=== PATIENT | male | born 1950 | race Caucasian/White ===

== ENCOUNTER → 2019-08-20 | Outpatient (CLI) | payer OTHER ==
[~2019-08-20] MED LIST: BUPR-365 PO; CETI10CA2 PO; FLUT15.820; HYDR-4517 PO; LEFL1TAB4 PO; LISI-542 PO; PANT40TA29 PO; PRED5PAK2 PO; PREG100CA PO; PROAAER10 INH; ROSU40TA4 PO; THEO400T4 PO; TIOT18INH INH; TOPR50TA PO
== END ==
LOC: M LABSMTC 08:03
PROVIDERS: ATTEND Anesthesiology
DX: Z03.818 Encounter for observation for suspected exposure to other biological agents ruled out (principal); Z11.59 Encounter for screening for other viral diseases
CPT/HCPCS: C9803; U0003

== ENCOUNTER 2019-08-24 06:52 | Day surgery (SDC) | payer OTHER ==
[~2019-08-24] VITALS: Ht 180.3 cm; Wt 86.5 kg
[2019-08-24] MEDS ORDERED: SIMETHICONE 40MG/0.6ML DROPS 30ML As Ordered ONE (06:58)
[2019-08-24] MEDS ORDERED: LIDOCAINE 2% 100MG/5ML SDV (FOR ANES.) As Ordered ONE (07:13)
[2019-08-24] MEDS ORDERED: propofoL 200 MG/20 ML VIAL As Ordered ONE (07:13)
[2019-08-24] MEDS ORDERED: NS 1,000 ML IV ONE (07:15)
--- NOTE | 2019-08-24 08:13 | ROOR ---
Patient Name: Adam Sanchez Procedure Date: 08/24/2019 7:36 AM Date of : 1950 Age: 69 Room: [facility] Gender: Male Note Status: Finalized Procedure: Colonoscopy Indications: High risk colon cancer surveillance: Personal history of colonic polyps Providers: Jovany Fine MD Referring MD: Sandro Smith Md Requesting Provider: Medicines: Monitored Anesthesia Care Complications: No immediate complications. Procedure: Pre-Anesthesia Assessment: - Prior to the procedure, a History and Physical was performed, and patient medications and allergies were reviewed. The patient is competent. The risks and benefits of the procedure and the sedation options and risks were discussed with the patient. All questions were answered and informed consent was obtained. Patient identification and proposed procedure were verified by the physician, the nurse and the anesthesiologist in the endoscopy suite. Mental Status Examination: alert and oriented. Airway Examination: normal oropharyngeal airway and neck mobility. Respiratory Examination: clear to auscultation. CV Examination: normal. Prophylactic Antibiotics: The patient does not require prophylactic antibiotics. Prior Anticoagulants: The patient has taken no previous anticoagulant or antiplatelet agents. ASA Grade Assessment: III - A patient with severe systemic disease. After reviewing the risks and benefits, the patient was deemed in satisfactory condition to undergo the procedure. The anesthesia plan was to use monitored anesthesia care (MAC). Immediately prior to administration of medications, the patient was re-assessed for adequacy to receive sedatives. The heart rate, respiratory rate, oxygen saturations, blood pressure, adequacy of pulmonary ventilation, and response to care were monitored throughout the procedure. The physical status of the patient was re-assessed after the procedure. The Colonoscope was introduced through the anus and advanced to the cecum, identified by appendiceal orifice and ileocecal valve. The colonoscopy was performed without difficulty. The patient tolerated the procedure well. The quality of the bowel preparation was excellent. Findings: Hemorrhoids were found on perianal exam. A localized area of mildly thickened folds, prob scarring of the mucosa was found in the distal transverse colon. Biopsies were taken with a cold forceps for histology. Estimated blood loss was minimal. Non-bleeding internal hemorrhoids were found during retroflexion. The hemorrhoids were medium-sized. Impression: - Hemorrhoids found on perianal exam. - No specimens collected. Recommendation: - Repeat colonoscopy in 5 years for surveillance. - Await pathology results. - Telephone my office for pathology results in 1 week. Jovany Fine MD Jovany Fine MD 08/24/2019 8:13:55 AM Electronically signed by Jovany Fine MD Number of Addenda: 0 Note Initiated On: 08/24/2019 7:36 AM Estimated Blood Loss: Estimated blood loss: none. Estimated blood loss was minimal.
[2019-08-24 08:21] VITALS: BP 105/60
== END 2019-08-24 08:21 | disposition home or self-care (01) ==
LOC: M OPP 06:52
PROVIDERS: ATTEND Surgery
DX: K64.8 Other hemorrhoids (principal); Z86.010 Personal history of colon polyps; K59.00 Constipation, unspecified; K62.5 Hemorrhage of anus and rectum; K63.5 Polyp of colon; I10 Essential (primary) hypertension; J44.9 Chronic obstructive pulmonary disease, unspecified; F17.210 Nicotine dependence, cigarettes, uncomplicated; Z79.891 Long term (current) use of opiate analgesic; Z79.899 Other long term (current) drug therapy; Z85.71 Personal history of Hodgkin lymphoma; Z92.3 Personal history of irradiation; Z92.21 Personal history of antineoplastic chemotherapy

== ENCOUNTER → 2019-10-25 | Outpatient (CLI) | payer OTHER ==
--- NOTE | 2019-11-10 11:28 | REP ---
PET CT STUDY HISTORY: Monitoring lymphoma. COMPARISON: No comparison PET CT study. Comparison CT chest 09/21/2019 and abdomen and pelvis 10/12/2019. TECHNIQUE: 50 minutes following the intravenous injection of an 8.05 mCi dose of F18 fluorodeoxyglucose (FDG), three-dimensional PET CT imaging is acquired from the skull base to the proximal thighs. PET CT FINDINGS: One of the pulmonary nodules noted on recent chest CT study, this being in the right lower lobe, is mildly hypermetabolic, standard uptake value (SUV) 4.69. The other pulmonary nodules do not show hypermetabolic uptake. There is no evidence of hilar or mediastinal adenopathy or hypermetabolic uptake elsewhere in the chest. Head and neck soft tissue show skeletal muscle normal variant uptake, but no evidence of mass or adenopathy. No axillary adenopathy is seen. There is hypermetabolic adenopathy in the abdomen with periaortic retroperitoneal lymph nodes where maximum SUV is approximately 7.0 to 7.7. Below the level of the aortic bifurcation, there is bilateral common iliac hypermetabolic adenopathy. Maximum SUV here is 9.66. There is right pelvic side wall iliopsoas deposit with maximum SUV 8.97. There is ari hypermetabolic uptake in the right inguinal soft tissues of maximum SUV 5.38. There is left pelvic side wall soft tissue deposit, which is hypermetabolic 10.68. There are two areas of bony involvement in the right hemipelvis, one along the anterior iliac crest with a maximum SUV value in the interosseous disease is 10.82. A large lesion surrounds the right acetabulum with maximum standard uptake value 11.73. No other bony involvement is seen. There is no abnormal hepatic hypermetabolic uptake. Exam is otherwise unremarkable. IMPRESSION: Hypermetabolic uptake is noted in the one of the pulmonary nodules, right lower lobe. Hypermetabolic ari disease is seen in the periaortic, pelvic, and right inguinal nodes as above. There is evidence of skeletal involvement in the right pelvis in the anterior iliac crest and in a large lesion surrounding the right acetabulum. MTDD
== END ==
LOC: M PLARAD 07:31
PROVIDERS: ATTEND Nurse Practitioner Acute Care
DX: C78.01 Secondary malignant neoplasm of right lung (principal); C81.78 Other Hodgkin lymphoma, lymph nodes of multiple sites
CPT/HCPCS: 78815; A9552

== ENCOUNTER → 2019-12-20 | Outpatient (REF) | payer OTHER ==
[~2019-12-20] MED LIST changes: +SILD100T PO; +SULF1TAB23 PO; +SYMB16INH INH; +[UNRECOGNIZED DRUG - OTHER] IV
== END ==
LOC: M SMT 13:02
PROVIDERS: ATTEND Urology
DX: N32.89 Other specified disorders of bladder (principal); Z79.899 Other long term (current) drug therapy
CPT/HCPCS: 81002; 87088; 87186; G0463

== ENCOUNTER → 2020-01-09 | Outpatient (CLI) | payer OTHER ==
[~2020-01-09] MED LIST changes: +LIDOCAINE 1% MDV 20ML VIAL As Ordered ONE; +MIDAZOLAM INJ 2MG/2ML VIAL (J2250 PER 1MG) As Ordered ONE; -[UNRECOGNIZED DRUG - OTHER] IV; +ceFAZolin 1GM VIAL (J0690 PER 500MG) As Ordered ONE; +diphenhydrAMINE 50MG/ML VIAL (J1200) As Ordered ONE; +fentaNYL 100 MCG/2 ML INJECTION (J3010) As Ordered ONE
--- NOTE | 2020-01-09 12:17 | IRHP ---
[facility] IR Pre-Procedure H & P General Date of Service: Jan 09, 2020 Procedure: Same Day Surgery Interval History and Physical I have seen the patient and reviewed last H & P performed within 30 days. There is no significant interval change. History of Present Illness Chief Complaint The patient is a 69-year-old male admitted with a reason for visit of Follicular Lymphoma. PRE-PROCEDURE DIAGNOSIS: lymphoma HEART: normal rate. LUNGS: normal breathing at rest. ASA Classification ASA Classification: III-Severe systemic dis. Mallampati Score: II NPO: Yes Problems with prior sedation: No Obstructive Sleep Apnea: No Plan moderate sedation Allergies Coded Allergies: No Known Allergies (Unverified , 01/02/20) Home Medications Scheduled Budesonide/Formoterol (Symbicort 160-4.5 Mcg Inhaler), 2 PUFF INH BID, (Reported) Bupropion HCl (Bupropion Xl), 150 MG PO BID, (Reported) Fluticasone Propionate (Fluticasone Propionate), 50 MCG NA DAILY, (Reported) Hydrocodone/Acetaminophen (Hydrocodone-Acetamin 10-325 mg), 1 TAB PO QID, (Reported) Leflunomide (Leflunomide), 20 MG PO DAILY, (Reported) Lisinopril (Lisinopril), 5 MG PO DAILY, (Reported) Metoprolol Succinate (Toprol Xl), 50 MG PO DAILY, (Reported) Pantoprazole Sodium (Pantoprazole Sodium), 40 MG PO BID, (Reported) Prednisone (Prednisone), 5 MG PO DAILY, (Reported) Pregabalin (Lyrica), 100 MG PO TID, (Reported) Rosuvastatin Calcium (Rosuvastatin Calcium), 40 MG PO DAILY, (Reported) Theophylline Anhydrous (Theophylline), 300 MG PO BID, (Reported) Tiotropium [place] Monohydrate (Spiriva), 1 INHALATION INH DAILY, (Reported) Scheduled PRN Albuterol Sulfate (Proair Hfa), 2 PUFF INH Q4-6HP PRN for SHORTNESS OF BREATH, (Reported) Discontinued Medications Sildenafil Citrate (Sildenafil Citrate), 1 TAB PO ASDIRECTED, (Reported) Discontinued Reason: Pt states not taking Sulfamethoxazole/Trimethoprim (Sulfamethoxazole-Tmp Ds Tablet), 1 TAB PO BID, (Reported) Discontinued Reason: Pt states not taking VS, I&O, 24H, Fishbone Vital Signs/I&O Vital Signs Date Time Temp Pulse Resp B/P (MAP) Pulse Ox O2 Delivery O2 Flow Rate FiO2 01/09/20 11:45 97.2 73 18 93 Room Air JAMEL JHAVERI MD Jan 09, 2020 12:17
--- NOTE | 2020-01-09 13:43 | POST-OPPD ---
Postoperative Procedure Note Date Of Procedure: Jan 09, 2020 Time Of Procedure: 13:42 IR ultrasound and fluoroscopy guided port placement IR Ultrasound of the neck. IR Moderate sedation. Clinical indication: Lymphoma. Physician: Dr. Knight. Procedure: The patient was advised of the benefits, risks, and alternatives of the procedure and informed consent was obtained. A time-out was performed with verification of the patient's name, MRN, site of procedure and type of procedure to be performed. The patient was positioned in the supine position on the angiographic table. The site was prepped and draped in the usual sterile fashion. Moderate sedation was performed by the physician including the presence of an independent trained RN who assisted and monitored the patient's level of consciousness and physiologic status. Following the administration of fentanyl and Versed , the physician spent 45 minutes of continuous face to face time with the patient. Ultrasound of the neck reveals a patent and compressible right internal jugular vein. A bean dumper radiograph reveals no gross abnormality. The neck and anterior chest wall were anesthetized with lidocaine. The right internal jugular vein was accessed using a microintroducer needle under ultrasound guidance, via a lateral approach. An 018 wire was advanced into the superior vena cava, the needle was removed and a microsheath was placed. An Amplatz wire was then passed into the inferior vena cava. An incision at the internal jugular vein access site and anterior chest wall were made using a scalpel. An incision was made at the anterior chest wall. A small pocket was created using a combination of blunt and sharp dissection. A tunneling device was then used to pass the catheter from the pocket to the neck puncture site. An 8- Welsh Angio Tweet Category Smart power port was then positioned in the pocket. The catheter was then measured and cut. The introducer sheath was exchanged for a peel-away sheath. The catheter was passed through the peel-away sheath into the internal jugular vein and the peel- away sheath was removed. The port tip was positioned at the cavoatrial junction. The port was then accessed with a Craig needle. The port flushes and aspirates well. The puncture site in the neck was closed. The chest wall incision was then closed with 2-0 Vicryl and 4-0 Monocryl. Glue and Steri- Strips were applied. A sterile dressing was then applied. The patient tolerated the procedure well and was returned to the PRU in stable condition. Estimated blood loss: <5 ml. Complications: None. Conclusion: 1. Successful placement of an 8-Welsh Angio dynamics Smart power port via the right internal jugular vein. The port is ready for immediate use. 2. Patient to follow up in IR clinic in 2 weeks. JAMEL KNIGHT MD Jan 09, 2020 13:43
[2020-01-09 15:31] VITALS: BP 110/65
== END ==
LOC: M IRPRO 11:33
PROVIDERS: ATTEND Radiology Diagnostic Radiology
DX: C82.90 Follicular lymphoma, unspecified, unspecified site (principal); Z79.899 Other long term (current) drug therapy
CPT/HCPCS: 36561; 99152; 99153; C1769; C1788; C1894; J0690; J1200; J1642; J1644; J2250; J3010

== ENCOUNTER → 2020-01-11 | Outpatient (CLI) | payer OTHER ==
[~2020-01-11] MED LIST changes: -LIDOCAINE 1% MDV 20ML VIAL As Ordered ONE; -MIDAZOLAM INJ 2MG/2ML VIAL (J2250 PER 1MG) As Ordered ONE; -ceFAZolin 1GM VIAL (J0690 PER 500MG) As Ordered ONE; -diphenhydrAMINE 50MG/ML VIAL (J1200) As Ordered ONE; -fentaNYL 100 MCG/2 ML INJECTION (J3010) As Ordered ONE
== END ==
LOC: M LABSMTC 12:56
PROVIDERS: ATTEND Anesthesiology
DX: Z01.812 Encounter for preprocedural laboratory examination (principal); Z20.828 Contact with and (suspected) exposure to other viral communicable diseases

== ENCOUNTER → 2020-02-11 | Outpatient (CLI) | payer OTHER ==
[~2020-02-11] MED LIST changes: +[UNRECOGNIZED DRUG - OTHER] IV
== END ==
LOC: M LABSMTC 11:34
PROVIDERS: ATTEND Anesthesiology
DX: Z01.812 Encounter for preprocedural laboratory examination (principal); Z20.828 Contact with and (suspected) exposure to other viral communicable diseases

== ENCOUNTER 2020-02-15 09:20 | Day surgery (SDC) | payer OTHER ==
[~2020-02-15] VITALS: Ht 180.3 cm; Wt 101.2 kg
[~2020-02-15 09:20] MED LIST changes: +LR 1,000 ML IV ONE
[2020-02-15] MEDS ORDERED: fentaNYL 100 MCG/2 ML INJECTION (J3010) As Ordered ONE (09:33)
[2020-02-15] MEDS ORDERED: ROCURONIUM BROMIDE 50 MG/5 ML VIAL As Ordered ONE (09:33)
[2020-02-15] MEDS ORDERED: ONDANSETRON 4MG/2ML VIAL As Ordered ONE (09:33)
[2020-02-15] MEDS ORDERED: MIDAZOLAM INJ 2MG/2ML VIAL (J2250 PER 1MG) As Ordered ONE (09:33)
[2020-02-15] MEDS ORDERED: propofoL 200 MG/20 ML VIAL As Ordered ONE (09:33)
[2020-02-15] MEDS ORDERED: LIDOCAINE 2% 100MG/5ML SDV (FOR ANES.) As Ordered ONE (09:33)
[2020-02-15] MEDS ORDERED: dexameTHASONE 4 MG/ML 1ML VIAL (J1100 PER 1MG) As Ordered ONE (09:33)
[2020-02-15] MEDS ORDERED: SUCCINYLCHOLINE 100 MG/5 ML SYRINGE (J0330) As Ordered ONE (09:33)
[2020-02-15 09:58] LABS: INR 0.98; PROTHROMBIN TIME 13.2 SECONDS (12.5-14.3)
[2020-02-15] MEDS ORDERED: VANCOMYCIN 1000MG/20ML VIAL As Ordered ONE (10:07)
[2020-02-15] MEDS ORDERED: GENTAMICIN/SOD CHL 80 MG/100 ML BAG (J1580) As Ordered ONE (10:07)
[2020-02-15] MEDS ORDERED: BACT400T PO (10:18)
[2020-02-15] MEDS ORDERED: GENTAMICIN 80 MG in IV 1 EA IV ONE (10:30)
[2020-02-15] MEDS ORDERED: VANCOMYCIN HCL 1,000 MG, VIAL MATE ADAPTER 1 EACH in D5W 250 ML IV ONE (10:30)
[2020-02-15] MEDS ORDERED: LACRILUBE (AKWA TEARS) OPHTH OINT 3.5 GM As Ordered ONE (11:35)
[2020-02-15] MEDS ORDERED: oxyCODONE 5MG TAB PO PRN (12:15)
[2020-02-15] MEDS ORDERED: LR 1,000 ML IV SCH (12:15)
[2020-02-15] MEDS ORDERED: ACETAMINOPHEN TAB 650MG DOSE (2X325MG) PO PRN (12:15)
[2020-02-15] MEDS ORDERED: fentaNYL 100 MCG/2 ML INJECTION (J3010) IV PRN (12:15)
[2020-02-15] MEDS ORDERED: ONDANSETRON 4MG/2ML VIAL IV PRN (12:15)
--- NOTE | 2020-02-15 13:53 | RO ---
OPERATIVE NOTE DATE OF OPERATION: 02/15/2020 PREOPERATIVE DIAGNOSIS: Bladder lesions. POSTOPERATIVE DIAGNOSIS: Bladder lesions. PROCEDURE: Cystoscopy. SURGEON: Jaylon Burr MD POOL TABLE OPERATOR: None. ANESTHESIA: General. OPERATIVE INDICATIONS: This is a 69-year-old male who underwent cystoscopy at the [facility] about a month or two ago. By report, he was found to have lesions on the anterior wall of his bladder. It was recommended that he be taken to the operating room for resection of these lesions. As he lives closer to [place], he wanted to have it done here. He was brought to the operating room today for treatment. DESCRIPTION OF PROCEDURE: The patient was brought to the operating room and general anesthesia was induced. Prophylactic antibiotics were infused. He was placed in the dorsolithotomy position and prepped and draped in the usual sterile fashion. A cystoscope was inserted into the urethral meatus and advanced to the bladder. The bladder was then thoroughly examined with both the 30 and the 70 degrees lenses. No tumors were seen. No bladder lesions were seen. There were no bladder stones. The urothelium of the bladder looked completely normal. There were no trabeculations. Both ureteral orifices were orthotopic and effluxed clear urine. Since no lesions were seen, no biopsies or resections were done. The patient's prostatic urethra was notable for bilobar prostatic hyperplasia with [id number] outlet obstruction. Of note, the patient did have some bleeding from his prostate from the procedure. The remainder of the urethra was unremarkable. The cystoscope was then completely removed. An 18-Polish Barbosa catheter was inserted into the bladder given the hematuria from the prostate. The catheter balloon was filled with 10 mL of sterile water and then the catheter was connected to gravity drainage. This marked conclusion of the procedure. The patient was taken out of the dorsolithotomy position, awakened from anesthesia, and transported to the recovery room in stable condition. ESTIMATED BLOOD LOSS: 5 mL. COMPLICATIONS: None. SPECIMENS: None. PLAN: The patient's catheter will be removed in the recovery room. Since no abnormalities were found, the patient will resume follow up with his urologist in [place]. PEPITO
[2020-02-15 14:15] VITALS: BP 132/78
== END 2020-02-15 14:40 | disposition home or self-care (01) ==
LOC: M SDC 09:20
PROVIDERS: ATTEND Urology
DX: N32.9 Bladder disorder, unspecified (principal); I10 Essential (primary) hypertension; J44.9 Chronic obstructive pulmonary disease, unspecified; K44.9 Diaphragmatic hernia without obstruction or gangrene; F41.9 Anxiety disorder, unspecified; F32.9 Major depressive disorder, single episode, unspecified; Z79.899 Other long term (current) drug therapy
CPT/HCPCS: 36415; 52000; 85610; J1580; J2405; J3370

== ENCOUNTER → 2020-03-09 | Outpatient (CLI) | payer OTHER ==
[~2020-03-09] MED LIST changes: +BACT400T PO; -LR 1,000 ML IV ONE
--- NOTE | 2020-03-09 12:29 | RADONC.CN ---
Radiation Oncology Hx/Consult Radiation Oncology Consult Date of Service: Mar 09, 2020 Pt Identifier Adam Sanchez is a 69 year old male with smoker with stage IV follicular lymphoma, grade I, currently on single agent rituximab with right pelvic pain from PET-CT avid bone involvement. He is seen for consideration of palliative RT. Diagnosis/Treatment History Oncologic History 2013 presented with pelvic mass, biopsy showed grade I FL. Started on BR which induced CR. Had restaging PET-CT on 10/25/19 which showed stage IV disease. He has notable right pelvic bone and soft tissue involvement on this study remainder of disease is ari in distribution. 11/29/19 right iliac was biopsied which showed recurrent FL grade 1. BM biopsy on 01/10/20 was negative. He has concomitant spinal arthritis, currently in workup for lumbar disc disease and cervical stenosis. Possible plan for cervical spine surgery at [facility] upcoming. Interval History Notes pain in the neck and low back, radiating in quality. Low back pain radiat es down the left leg to the ankle. No weakness in the arms or legs. He also has localized right hip/pelvic pain, hurts worst when he sits on hard surfaces, or with extensive use. Does not radiate, improves with rest and narcotic. He is also on lyrica which is helpful but sedating. He has no saddle anesthesia, or bowel and bladder difficulties. Past Medical History: Arthristis Spinal stenosis Lumbar disc disease HTN COPD Past Surgical History: None Family History: No family cancer history Social History: Current smoker 1/2 ppd, 50 pack years Used to drink alcohol does not any longer [employer] [place] [place] in [place] [employer] denies agent orage Allergies / Meds Allergies: Coded Allergies: No Known Allergies (Unverified , 02/01/20) Home Meds Reported Medications Sulfamethoxazole/Trimethoprim (Bactrim 400-80 mg Tablet) 1 Each Tablet, 1 TAB PO BID for 7 Days, #14 TAB 02/15/20 [Ripuximab] No Conflict Check, IV QWEEK 02/01/20 Budesonide/Formoterol (Symbicort 160-4.5 Mcg Inhaler) 6 Gm Hfa.aer.ad, 2 PUFF INH BID for 30 Days, #1 INHALER 12/26/19 Rosuvastatin Calcium (Rosuvastatin Calcium) 40 Mg Tablet, 40 MG PO DAILY, TAB 08/15/19 Metoprolol Succinate (Toprol Xl) 50 Mg Tab.er.24h, 25 MG PO DAILY, TAB 08/15/19 Hydrocodone/Acetaminophen (Hydrocodone-Acetamin 10-325 mg) 1 Each Tablet, 1 TAB PO QID, TAB 08/15/19 Pregabalin (Lyrica) 100 Mg Capsule, 100 MG PO TID, CAP 08/15/19 Albuterol Sulfate (Proair Hfa) 8.5 Gm Hfa.aer.ad, 2 PUFF INH Q4-6HP PRN for SHORTNESS OF BREATH, INHALER 08/15/19 Tiotropium [place] Monohydrate (Spiriva) 18 Mcg Cap.w.dev, 1 INHALATION INH DAILY, INHALER 08/15/19 Fluticasone Propionate (Fluticasone Propionate) 15.8 Ml [place].susp, 50 MCG NA DAILY, CONTAINER 08/15/19 Bupropion HCl (Bupropion Xl) 150 Mg Tab.er.24h, 150 MG PO BID, TAB 08/15/19 Lisinopril (Lisinopril) 5 Mg Tablet, 2.5 MG PO DAILY, TAB 08/15/19 Leflunomide (Leflunomide) 20 Mg Tablet, 20 MG PO DAILY, TAB 08/15/19 Prednisone (Prednisone) 5 Mg Tab.ds.pk, 5 MG PO DAILY 08/15/19 Pantoprazole Sodium (Pantoprazole Sodium) 40 Mg Tablet.dr, 40 MG PO BID, TAB 08/15/19 Theophylline Anhydrous (Theophylline) 400 Mg Tab.er.24h, 300 MG PO BID, TABCR 08/15/19 Review of Systems Constitutional: Reports: Fatigue; Denies: Chills, Fever, Night Sweats Eyes: Denies: Pain, Vision change HEENT: Denies: Head Aches, Dysphagia, Sore Throat Pulmonary: Reports: Dyspnea; Denies: Cough Cardiovascular: Denies: Chest Pain, Palpitations, Edema Gastrointestinal: Denies: Nausea, Vomiting, Abdominal Pain, Diarrhea, Constipation Genitourinary: Denies: Dysuria, Frequency, Incontinence Hematologic: Reports: Bruising; Denies: Petecchia, Enlarged Lymph Nodes Musculoskeletal: Reports: Neck pain, Back pain, Leg pain; Denies: Hand pain Neurological: Denies: Weakness, Numbness, Incoordination Psych: Reports: Mood Normal; Denies: Memory Issues, Thoughts of Self Harm Vital Signs Ht 71" Wt 200 lb BMI 28 T 98 P 96 RR 22 BP 155/96 O2 91% Pain 6 Fatigue 1 General Exam: Positive: Alert, Cooperative, No Acute Distress Eye Exam: Positive: PERRLA, EOMI ENT EXAM: Positive: Mucous membr. moist/pink, Pharynx Normal Neck Exam: Negative: Thyromegaly, Lymphadenopathy Chest Exam: Positive: Normal air movement; Negative: Rales, Rhonchi, Wheezing Heart Exam: Positive: Rate Normal, Regular Rhythm Abdomen Exam: Positive: Soft; Negative: Tenderness, Hepatospenomegaly, Mass Extremity Exam: Positive: Edema; Negative: Tenderness Skin Exam: Positive: Nl turgor and temperature; Negative: Rash Neuro Exam: Positive: Normal Gait, Normal Speech, Cranial Nerves 3-12 NL Psych Exam: Positive: Mental status NL, Mood NL, Memory Intact Other Physical Findings MSK: Right hip with minimal tenderness to palpation over the anterior pelvic girdle, no TTP over iliacs, ischia, and lumbosacral spinal levels. Diagnostic and Laboratory Diagnostic Review Radiologic images, relevant labs and pathology reports were personally reviewed and discussed with Mr. Sanchez. Assessment and Plan Impression Mr. Sanchez is a 69 year old male with a history of smoker with stage IV follicular lymphoma, grade I, currently on single agent rituximab with right pelvic pain from PET-CT avid bone involvement. He is seen for consideration of p alliative RT. Stage Follicular lymphoma stage IV grade 1 Performance Status ECOG 2 Plan We had an extensive discussion with Mr. Sanchez regarding the diagnosis at hand and available therapeutic options. He has bone and soft tissue disease in the right iliac and acetabulum as well as abdomino-pelvic adenopathy at these levels. I favor treating the right hemipelvis with 20 Gy in 5 fractions AP/PA with MV localization in the interest of pain control. He certainly has pain that is arthritic in nature as well that would be best addressed surgically or with non-operative pain management measures and he has appropriate follow up in the pain clinic here and with a spine surgeon at [facility]. The latter may be planning on operating so prompt delivery of palliative RT is warranted and I discussed that we could move ahead and get him under treatment next week. We discussed the logistics of receiving radiation therapy in detail including the need for a 1-time planning session. We reviewed anticipated side effects of fatigue and mild self-limited diarrhea. After discussing the risks, benefits and alternatives to radiation therapy, Mr. Sanchez was amenable to pursuing radiotherapy. All questions were answered to the patient's satisfaction. We instructed the patient that if there were any questions,concerns or changes in clinical status in the interim to contact us. Recommendations Palliative RT to the right hemipelvis 20 Gy in 5 fractions Simulation early next week 03/12/20 or 03/13/20 Total time of 40 minutes was spent preparing for the visit (5), obtaining HPI (13), examining the patient (4), reviewing diagnostic tests (5), discussing management options (3), coordinating care (3), and writing this note (7). ROX GENTILE MD Mar 09, 2020 12:29
== END ==
LOC: M ONCR 10:53
PROVIDERS: ATTEND General Practice
DX: C82 Follicular lymphoma (principal)

== ENCOUNTER 2020-03-20 11:45 | Outpatient (RCR) | payer OTHER ==
[~2020-03-20 11:45] MED LIST changes: -LISI-542 PO; +LISI-898 PO
[2020-04-02] MEDS ORDERED: PRED10TA2 (13:10)
== END 2020-04-08 ==
LOC: M ONCR 11:45
PROVIDERS: ATTEND General Practice
DX: C82.09 Follicular lymphoma grade I, extranodal and solid organ sites (principal)

== ENCOUNTER → 2020-03-21 | Outpatient (CLI) | payer OTHER, MEDICARE ==
--- NOTE | 2020-03-21 18:50 | REP ---
INDICATION: SOLITARY PULMONARY NODULE COMPARISON: 09/21/2019 TECHNIQUE: Axial noncontrast images from the thoracic inlet to the upper abdomen with coronal and sagittal reformations. This CT examination was performed using the following dose reduction techniques: Automated exposure control, adjustment of mA and/or kv according to the patient's size, and use of iterative reconstruction technique. FINDINGS: Lung vazquez demonstrate mild chronic emphysematous changes and scattered age-related interstitial changes. Lobulated right lower lobe nodule measures 16 mm and increased from prior examination (previously measuring 11 mm). Left upper lobe and left lower lobe nodules now demonstrates small amounts of central calcification suggesting chronic granulomatous change. Subtle reticulonodular changes are appreciated in the right lung along with tree in bud type infiltrates in the right lower lobe suggesting an acute infectious/inflammatory process. No effusion. No pneumothorax. Tracheobronchial tree is patent. No significant axillary, hilar, or mediastinal adenopathy. Atherosclerotic changes to the thoracic aorta and coronary arteries noted. [id number] identified with tip in the SVC. Skeletal structures demonstrate degenerative changes without focal osseous abnormality. IMPRESSION: 1. Slightly lobulated right lower lobe nodule increased in size to 16 mm on current examination. Nodule exhibited hypermetabolic activity on prior PET-CT and is concerning for malignancy. 2. Subtle superimposed nodular pattern and right lower lobe tree in bud pattern suggest a superimposed acute infiltrate. 3. No significant adenopathy. No effusion. <Electronically signed by Vinnie Cabrera > 03/21/20 [id number]
== END ==
LOC: M RAD 12:45
PROVIDERS: ATTEND Internal Medicine Pulmonary Disease
DX: R91.1 Solitary pulmonary nodule (principal)

== ENCOUNTER → 2020-03-31 | Outpatient (CLI) | payer OTHER ==
[~2020-03-31] MED LIST changes: +PRED10TA2
== END | disposition home or self-care (01) ==
LOC: M LABSMTC 11:33
PROVIDERS: ATTEND Anesthesiology
DX: Z01.812 Encounter for preprocedural laboratory examination (principal); Z11.52 Encounter for screening for COVID-19

== ENCOUNTER → 2020-04-03 | Outpatient (CLI) | payer OTHER ==
[~2020-04-03] MED LIST changes: +GASTROGRAFIN SOLUTION 30ML (Q9963) As Ordered ONE; +ISOVUE-370 76% 100ML VIAL As Ordered ONE
--- NOTE | 2020-04-03 17:10 | REP ---
INDICATION: LYMPHOMA RESTAGING. COMPARISON: Contrast CT 10/12/2019 at [facility], noncontrast CT 10/26/2014 TECHNIQUE: Oral Gastrografin mixture per our bowel contrast protocol followed by bolus of 100 mL Isovue 370 scanning through the abdomen and pelvis. Coronal and sagittal reconstructions provided. Delayed images also obtained. FINDINGS: CT abdomen: Lung bases show some dependent atelectatic changes deep sulcus right lower lobe without effusion or acute infiltrate no parenchymal mass. Irregular nodule 9 mm size anteriorly in the lateral basal segment of the left lower lobe on image 15 of series 204. There is a similar finding on the image 4 of series [address] in October 2019. Heart is not enlarged no pericardial thickening or effusion. The liver shows multiple scattered hypodensities in right and left lobes which are unchanged in number and size from the previous studies mild prominence of the intrahepatic ducts centrally noted. All this is unchanged. There is no gross hepatomegaly or solid mass nor adjacent ascites. See no calcifications along the course of the common duct in chrystal hepatis to the pancreatic head. The gallbladder shows no calcified stone. Adrenal glands grossly intact. Exophytic cyst posteriorly in the interpolar region the left kidney is unchanged, about 12 mm. Subcentimeter parenchymal cyst anteriorly upper pole the left kidney unchanged. Lower pole cyst medially in the left kidney. The right kidney also stable. No hydronephrosis, hydroureter, renal or ureteral stone identified. Small bowel loops contrast filled and grossly unremarkable. There is stool and gas scattered throughout the colon without signs of colitis, diverticulitis, stricture or mass. Abdominal aorta shows atherosclerotic calcifications but no aneurysm or dissection. Very heavy calcification in the proximal left renal artery but no atrophy of that kidney or evidence for infarct. Also calcification origin of the left main renal artery, celiac axis and SMA. The lung window review of all CT slices shows no free air or perforation in the abdomen and pelvis. No ascites in the peritoneal gutters. Bones show extensive mid lumbar discogenic sclerosis and vacuum phenomenon L2-3 through L4-5. Posterior osteophytes and a calcified extruded disc centrally and towards the right at the L3-4 level. All this unchanged. There is foraminal encroachment at multiple lumbar levels. I do not see periaortic, other retroperitoneal or mesenteric pathologic sized lymphadenopathy. CT pelvis: Sacrum, SI joints, pelvis and hips show some mild degenerative changes without destructive lesion or fractures. Distal left colon, sigmoid and rectum grossly unremarkable. No pelvic or inguinal pathologic sized lymphadenopathy. No ventral or inguinal hernia. Bladder without abnormal wall thickening, stone or mass. Prostate with calcifications from prior inflammatory process. Small bowel loops in the pelvis unremarkable. IMPRESSION: 1. Multiple hepatic and CIS and low-density lesions unchanged from previous study without solid mass or hepatomegaly. Some mild intrahepatic central biliary dilatation as on the previous study but no visible calcified stone within the common duct. 2. Pancreas, adrenal glands and spleen were unremarkable stomach shows no hiatal hernia. 3. Some small cysts in the kidneys as described. No abdominal or pelvic lymphadenopathy. No renal, ureteral or bladder stone. 4. Colon and small bowel loops grossly intact. Some degenerative changes in the spine pelvis and hips as described. <Electronically signed by Harsha Millan > 04/03/20 4545
== END ==
LOC: M RAD 13:47
PROVIDERS: ATTEND Internal Medicine Hematology & Oncology
DX: C82.90 Follicular lymphoma, unspecified, unspecified site (principal); N28.1 Cyst of kidney, acquired; M19.90 Unspecified osteoarthritis, unspecified site; K76.89 Other specified diseases of liver; M25.78 Osteophyte, vertebrae
CPT/HCPCS: 74177; Q9963; Q9967

== ENCOUNTER 2020-04-04 08:02 | Day surgery (SDC) | payer OTHER ==
[~2020-04-04] VITALS: Ht 180.3 cm; Wt 100.7 kg
[~2020-04-04 08:02] MED LIST changes: +ALBUTEROL SULFATE 2.5 MG/0.5 ML INH NEB SOLN INH ONE; -GASTROGRAFIN SOLUTION 30ML (Q9963) As Ordered ONE; -ISOVUE-370 76% 100ML VIAL As Ordered ONE; +LIDOCAINE 1% MDV 20ML VIAL SQ PRN; +LIDOCAINE 4% INJ 5ML AMP INH ONE; +LR 1,000 ML IV ONE
--- OUTSIDE RECORDS SUMMARY | 2020-04-04 08:07 | CCD | Continuity of Care Document ---
Author Author Adam BUNDY MD Organization Unknown Address [address] [place] [address] Phone [phone] Care Team Providers Care Billet Assembler Name Role Phone Mohan Macdonald M.D. AUTM [phone] [facility] [phone] Isaias Ames M.D. AUTM [phone] Problems Active Problems Provider Date Essential hypertension Cristian Cota NP Onset: 08/03/2019 Social History Type Date Description Comments Sex Unknown ETOH Use Has consumed alcohol in the past ALCOHOLIC 14 YRS SOBER Tobacco Use Start: Unknown Smokes 1/2 Pack A Day HAS SMOKED SINCE 13 YRS OLD 3 PPD Recreational Drug Use Denies Drug Use Smoking Status Reviewed: 02/01/20 Smokes 1/2 Pack A Day HAS SMO KED SINCE 13 YRS OLD 3 PPD Allergies, Adverse Reactions, Alerts Description No Known Drug Allergies Medications Active Medications SIG Qnty Indications Ordering Provide r Date Prednisone 10mg Tablets 40mg po qd x 4 days then 30mg qd x 4 days then 20mg qd x 4 days then 10mg qd x 4 days and stop 40tabs Oseas Bundy MD 03/28/2020 Fleet Enema 7-19GM/118ML Enema use as directed 1 enema now, if no results may repeat in 6 hrs 1596ml K59. 00 Cristian Cota NP 08/03/2019 Vitamin B 12 500mcg Tablets 1 by mouth every day Unknown Spiriva Respimat 2.5mcg/Act Aeroso l 2 puffs every day Unknown Artificial Tears 0.1-0.3% Solution 1 drop both eyes four times a day as needed Unknown Vitamin B Complex Tablets 1 by mouth every day Unknown Phenylephrine HCL 10mg Tablets every 4 hours as needed Unknown Ginseng Xtra Capsules every day Unknown Ascorbic Acid 500mg Tablets e very day Unknown Theophylline ER 300mg Tablets ER 1 2HR 1 by mouth twice a day Unknown Sildenafil Citrate 100mg Tablets 1/2 tab as needed Unknown Rosuvastatin Calcium 40mg Tablets 1 by mouth every day Unknown Pregabalin 100mg Capsules 1 cap three times a day as needed Unknown Prednisone 5mg Tablets 1 by mouth every day as needed Unknown Phenazopyridine HCL 200mg Tablets 1 tab by mouth twice a day Unknown Pantoprazole Sodium 40mg Tablets D R twice a day Unknown Metoprolol Succinate ER 50mg Tablets ER 24HR once a day Unknown Lisinopril 5mg Tablets 1 by mouth every day Unknown Leflunomide 20mg Tablets ever y day Unknown Hydrocodone Bitartrate/Acetaminophen 10-325mg Tablets 1 tab four times a day as needed Unknown Fluticasone Propionate 50mcg/Act Suspension 2 sprays to each nostril daily Unknown Docusate Sodium 100mg Capsules by mouth twice a day and at hs if needed Unknown Bupropion HCL 100mg Tablets 1 1/2 tabs twice a day Unknown Budesonide/Formoterol Fumarate Dihydrate 160-4.5mcg/Act Aerosol inhale 2 puffs by mouth two times a day Unknown Bisacodyl Ec 5mg Tablets DR 2 tabs twice a day as needed Unknown Albuterol Sulfate HFA 108(90Base) mcg/Act Aerosol inhale two puffs by mouth four times a day as needed Unknown History Medications Prednisone 10mg Tablets 40mg po qd x 4 days then 30mg qd x 4 days then 20mg qd x 4 days then 10mg qd x 4 days and stop 40tabs Oseas Bundy MD 12/27/2019 - 020 Immunizations Description No Information Available Vital Signs Date Vital Result Comment 02/01/2020 1:12pm BP Systolic 118 mmHg BP Diastolic 80 mmHg Heart Rate 108 /min O2 % BldC Oximetry 91 % Room Air Height 71 inches 5'11" Weight 217.00 lb BMI (Body Mass Index) 30.3 kg/m2 [place] Body Weight 172 lb Weight 98.431 kg BSA (Body Surface Area) 2.18 m2 12/27/2019 2:19pm BP Systolic 100 mmHg BP Diastolic 60 mmHg Heart Rate 70 /min O2 % BldC Oximetry 89 % 90 ra Height 71 inches 5'11" [place] Body Weight 172 lb Results Description No Information Available Procedures Date Code Description Status 01/31/2020 95150 Diffusing Capacity Completed 01/31/2020 87347 Plethysmography Determination Анна ng Volumes & Per Airway Resist Completed 01/31/2020 88523 Maximum Breathing Capacity, Maxi mal Voluntary Ventilation Completed 01/31/2020 21810 Bronchospasm Evaluation Complete d Medical Devices Description No Information Available Encounters Type Date Location Provider Dx Diagnosis Office Visit 02/01/2020 1:00p [facility] Feliberto Bundy MD J44.9 Chronic obstructive pulmonary disease, u nspecified R91.8 Other nonspecific abnormal f inding of lung field F17.218 Nicotine dependence, cigaret liz, w oth disorders Office Visit 12/27/2019 2:00p [facility] Feliberto Bundy MD R91.1 Solitary pulmonary nodule R91.8 Other nonspecific abnormal f inding of lung field J44.9 Chronic obstructive pulmonar y disease, unspecified F17.218 Nicotine dependence, cigaret liz, w oth disorders Assessments Date Code Description Provider 03/28/2020 R91.1 Solitary pulmonary nodule Karolyn Bundy MD 03/28/2020 J44.9 Chronic obstructive pulmonary di sease, unspecified Oseas Bundy MD 03/28/2020 R91.8 Other nonspecific abnormal findi ng of lung field Oseas Bundy MD 03/28/2020 F17.218 Nicotine dependence, cigarettes, with other nicotine-induced disorders Oseas Bundy MD 02/01/2020 J44.9 Chronic obstructive pulmonary di sease, unspecified Oseas Bundy MD 02/01/2020 R91.8 Other nonspecific abnormal findi ng of lung field Oseas Bundy MD 02/01/2020 F17.218 Nicotine dependence, cigarettes, with other nicotine-induced disorders Oseas Bundy MD 01/31/2020 R91.1 Solitary pulmonary nodule [facility] 12/27/2019 R91.1 Solitary pulmonary nodule Karolyn cynthia Bundy MD 12/27/2019 R91.8 Other nonspecific abnormal findi ng of lung field Oseas Bundy MD 12/27/2019 J44.9 Chronic obstructive pulmonary di sease, unspecified Oseas Bundy MD 12/27/2019 F17.218 Nicotine dependence, cigarettes, with other nicotine-induced disorders Oseas Bundy MD Plan of Treatment 03/28/2020 - Oseas Bundy MD* R91.1 Solitary pulmonary nodule * J44.9 Chronic obstructive pulmonary disease, unspecified * R91.8 Other nonspecific abnormal finding of lung field * F17.218 Nicotine dependence, cigarettes, with other nicotine-induced disorders * * R91.1 Solitary pulmonary nodule * J44.9 Chronic obstructive pulmonary disease, unspecified * R91.8 Other nonspecific abnormal finding of lung field * F17.218 Nicotine dependence, cigarettes, with other nicotine-induced disorders * * New Orders:* Bronchoscopy in [place], Ordered: 03/28/20 * Follow up:* Follow up in office after procedure. Functional Status Description No Information Available Mental Status Description No Information Available Referrals Refer to Dr Reason for Referral Status Appt Date Oseas Bundy M.D. CONSULT,F/U VISITS,CT'S,PFT'S-BRONCHS DX COPD Created [facility] [address] [place], [place] [address] [phone]
--- OUTSIDE RECORDS SUMMARY | 2020-04-04 08:07 | CCD | Continuity of Care Document ---
Author Author Adam DUNCAN DPM Organization Unknown Address [address] [place] [address], [address] [place] [address] Phone [phone] Care Team Providers Care Molder Foam Rubber Name Role Phone Sandro Smith MDM [phone] Problems Active Problems Provider Date Pain in limb Nilesh Duncan DPM Onset: 12/30/2019 Onychomycosis Nilesh Duncan DPM Onset: 12/30/2019 Ingrowing nail Nilesh Duncan DPM Onset: 12/30/2019 Social History Type Date Description Comments Sex Unknown ETOH Use Has consumed alcohol in the past was alcholic quit 2004 quit off and on Tobacco Use Start: Unknown Patient is a current smoker, smo kes every day smokes 5 cigs a day since age 13 Allergies, Adverse Reactions, Alerts Description No Known Drug Allergies Medications Active Medications SIG Qnty Indications Ordering Provide r Date Prednisone 10mg Tablets Oseas Bundy M.D. Pantoprazole Sodium 40mg Tablets D R Take One Tablet By Mouth Twice A Day Unknown Immunizations Description No Information Available Vital Signs Date Vital Result Comment 12/29/2019 2:19pm Height 71 inches 5'11" Weight 215.00 lb BP Systolic 128 mmHg BP Diastolic 60 mmHg Heart Rate 84 /min BMI (Body Mass Index) 30.0 kg/m2 Results Description No Information Available Procedures Date Code Description Status 03/08/2020 41307 Debridement 6-10 Nails Electric Completed 12/29/2019 97295 Debridement 6-10 Nails Electric Completed Medical Devices Description No Information Available Encounters Type Date Location Provider Dx Diagnosis Office Visit 12/29/2019 2:15p [facility] Nilesh Duncan DPM M79.676 Pain in unspecified toe(s) B35.1 Tinea unguium L60.0 Ingrowing nail Assessments Date Code Description Provider 03/08/2020 B35.1 Tinea unguium Nilesh Duncan DPM 03/08/2020 I73.89 Other specified peripheral vascu lar diseases Nilesh Duncan DPM 12/29/2019 M79.676 Pain in unspecified toe(s) Collin Duncan DPM 12/29/2019 B35.1 Tinea unguium Nilesh Duncan DPM 12/29/2019 L60.0 Ingrowing nail Nilesh Duncan DPM Plan of Treatment Future Appointment(s):* 05/17/2020 2:00 pm - Nilesh Duncan DPM at [facility] Functional Status Description No Information Available Mental Status Description No Information Available Referrals Refer to Dr Reason for Referral Status Appt Date Nilesh Duncan DPM Created [address] [address] [phone] Nilesh Duncan DPM Created [address] [address] [phone]
--- OUTSIDE RECORDS SUMMARY | 2020-04-04 08:07 | CCD | Summary of Care ---
Author Author [facility] Organization [facility] Address Unknown Phone Unavailable Care Team Providers Care Golf Course Equipment Operator Name Role Phone PCP Unavailable Reason for Visit * Reason Comments Neck Pain Encounter Details Care Team Description Date Type Department Bennett Kaplan MD [address] [place] [address] Kyphosis of cervical region, unspecified kyphosis type (Primary Dx) 03/13/2020 Telemedicine [facility] [address] [place] [address] Allergies Not on Filedocumented as of this encounter (statuses as of 03/13/2020) Medications Not on filedocumented as of this encounter (statuses as of 03/13/2020) Active Problems Not on filedocumented as of this encounter (statuses as of 03/13/2020) Social History Date Tobacco Use Types Packs/Day Years Used Never Assessed Sex Assigned at Date Recorded Not on file documented as of this encounter Last Filed Vital Signs Not on filedocumented in this encounter Progress Notes * Bennett Kaplan MD - 03/13/2020 3:30 PM EST This is a telemedicine visit completed during the COVID-19 pandemic. This visit was done via the phone and lasted approximately 18 minutes. The patient gave v erbal consent. HPI: This patient is a 6-year-old male. He has a rather extensive past medical history. He currently is being treated for lymphoma. He presents today with si gnificant neck and suboccipital pain. He states that he has been having a lot o f trouble with gait and balance. He states that his left lower extremity contin ues to get weaker. He does not endorse any problems with fine motor tasks. He has significant difficulty holding his head up and maintaining horizontal gaze. MRI scan of the cervical spine reveals C3/C4 spondylolisthesis. There is a rath er large uncovered disc at C3/C4 in addition to ligamentum flavum hypertrophy. These both contribute to significant spinal cord compression with associated T2 signal change. He also has significant subaxial cervical kyphosis which is acce ntuated in the upright position. He has an abnormally high C2-7 sagittal vertic al axis. He also states that he has lumbar spine pathology. We unfortunately d o not have access to this. Adam had stated that he has a history of prior os teomyelitis after a bout of pneumonia a number of years ago. EXAM: Deferred A/P: This patient is a 69-year-old male currently being treated for non-Hodgkin' s lymphoma, presenting with a sagittal plane deformity of the cervical spine, as sociated with spinal cord compression and myelopathy. After he is treated for his non-Hodgkin's lymphoma, I do feel that it would be v john reasonable to consider an anterior and posterior spinal operation. I would consider a C3-6 anterior cervical discectomy and fusion with preoperative and in traoperative cervical traction. I would plan to place oversized interbody cages . Several days later, we will strongly consider a posterior cervical thoracic i nstrumentation and fusion, with a decompression at C3. I do feel that this woul d significantly help his myelopathy, as well as his sagittal plane deformity. I would like to obtain imaging of the rest of his spine prior to making a defini tive surgical plan. Once we have all the imaging including upright scoliosis fu ll spine x-rays, we will reconvene in a few weeks. Thank you for this consultation. documented in this encounter Plan of Treatment Order Schedule Name Type Priority Associated Diag noses Expected: 03/13/2020, Expires: 3 Scoliosis Series Imaging Routine Kyphosis of c ervical region, unspecified kyphosis type Expected: 03/13/2020, Expires: 3 Scoliosis Series Imaging Routine Kyphosis of c ervical region, unspecified kyphosis type Health Maintenance Due Date Last Done Comments Hepatitis C Screening (B. 1950 1153-9241) MMR Vaccines ( - 1951 Standard series) Varicella Vaccines (1951 2 - 2-dose childhood series) DTaP,Tdap,and Td Vaccines 1956 (1 - Tdap) Colon Cancer Screening 10 1999 yrs Zoster Vaccines (1 of 2) 1999 Pneumococcal Vaccine: 65+ 2014 Years (1 of 1 - PPSV23) Influenza Vaccine 11/10/2019 HIB Vaccines Aged Out No longer eligible based on patient's age to complete this topic Hepatitis A Vaccines Aged Out No longer eligibl e based on patient's age to complete this topic Hepatitis B Vaccines Aged Out No longer eligibl e based on patient's age to complete this topic IPV Vaccines Aged Out No longer eligible based on patient's age to complete this topic Pneumococcal Vaccine: Aged Out No longer eligib le based on patient's age to Pediatrics (0 to 5 Years) complete this topic and At-Risk Patients (6 to 64 Years) documented as of this encounter Results Not on filedocumented in this encounter Visit Diagnoses Diagnosis Kyphosis of cervical region, unspecifie d kyphosis type - Primary documented in this encounter
--- OUTSIDE RECORDS SUMMARY | 2020-04-04 08:08 | CCD | Continuity of Care Document ---
Author Author Adam BUNDY MD Organization Unknown Address [address] [place] [address] Phone [phone] Care Team Providers Care Manager Field Sales Name Role Phone Mohan Macdonald M.D. AUTM [phone] [facility] AUTM [phone] Isaias Ames M.D. AUTM [phone] Problems Active Problems Provider Date Essential hypertension [...] SIG Qnty Indications Ordering Provide r Date Fleet Enema 7-19GM/118ML Enema use as directed [...] lb BMI (Body Mass Index) 30.3 kg/m2 [place] Body Weight 172 lb Weight 98.431 kg BSA (Body Surface Area) 2.18 m2 12/27/2019 2:19pm BP Systolic 100 mmHg BP Diastolic 60 mmHg Heart Rate 70 /min O2 % BldC Oximetry 89 % 90 ra Height 71 inches 5'11" [place] Body Weight 172 lb Results Test Acquired Date Facility Test Result H/L Range Note Laboratory test finding 08/24/2019 [facility] [address] [place] [address] [phone] Pathology Request For Service (SEE NOTE) 1 1 FINAL DIAGNOSIS Transverse colon polyp, polypectomy: Fragments of hyperplastic polyp. 08/25/2019 - 1335 CLINICAL DIAGNOSIS Colon polyps 08/24/2019 - 1548 GROSS DIAGNOSIS Received in formalin labeled "biopsy transverse colon" are two fragments of chua soft tissue measuring 0.4 and 0.5 cm. All in one. -YZ 08/24/2019 - 1548 Signed Tammy Hung M.D. 08/25/2019 1339 Procedures Date Code Description Status 01/31/2020 56836 Diffusing Capacity Completed 01/31/2020 93163 Plethysmography Determination Анна ng Volumes & Per Airway Resist Completed 01/31/2020 71730 Maximum Breathing Capacity, Maxi mal Voluntary Ventilation Completed 01/31/2020 50319 Bronchospasm Evaluation Complete d 08/24/2019 08546 Colonoscopy Flexible Proximal To Splenic Flexure W/Biopsy Single/ Completed Medical Devices Description No Information Available [...] oth disorders Assessments Date Code Description Provider 02/01/2020 J44.9 Chronic obstructive pulmonary di sease, [...] with other nicotine-induced disorders Oseas Bundy MD 08/24/2019 Z12.11 Encounter for screening for vicente gnant neoplasm of colon Jovany Fine MD 08/24/2019 Z86.010 Personal history of colonic poly ps Jovany Fine MD 08/24/2019 K64.8 Other hemorrhoids Jovany love MD 08/24/2019 K63.5 Polyp of colon Jovany riggins MD Plan of Treatment Future Appointment(s):* 03/28/2020 2:00 pm - Oseas Bundy MD at [facility] 02/01/2020 - Oseas Bundy MD* J44.9 Chronic obstructive pulmonary disease, unspecified * R91.8 Other nonspecific abnormal finding of lung field * F17.218 Nicotine dependence, cigarettes, with other nicotine-induced disorders * * New Labs:* FVL/Filiberto, Ordered: 02/01/20 * Comments:* ~ At this point, we await his response to therapy. ~ He is scheduled for a CT scan, now, in March, and I will see him in return with it.~ We will recheck spirometry, oximetry and flow volume loop at that visit for advanced obstructive lung disease.~ Unfortunately, he still smokes the occasional cigarette, as he thinks it helps him expectorate secretions, and I have asked him to use his nebulizer instead.~ He is to call me sooner if problems arise with which we can be of assistance. * Follow up:* Keep scheduled f/u Functional Status Description No Information Available Mental Status Description No Information Available Referrals Refer to Reason for Referral Status Appt Date Oseas Bundy M.D. CONSULT,F/U VISITS,CT'S,PFT'S-BRONCHS DX COPD Created [facility] [address] [place], [place] [address] [phone]
--- OUTSIDE RECORDS SUMMARY | 2020-04-04 08:08 | CCD ---
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 Name Role Phone Jaylon Burr Unavailable PROBLEMS Type Condition ICD9-CM Code [id number] Code Onset Dates Condition S tatus SNOMED Code Notes Problem Preop testing Z01.818 Active 195313587 Problem UTI (urinary tract infection) N39.0 Active 68 021090 Problem Bladder mass N32.89 Active [id number] ALLERGIES No Information ENCOUNTERS from 1950 to 2020-02-15 Encounter Location Date Provider Diagnosis [facility] [address] [facility] [place] [address] Feb Jaylon Burr IMMUNIZATIONS No Information SOCIAL HISTORY Sex Assigned At : Social History Observation Description Sex Assigned At Unknown REASON FOR REFERRAL No Information VITAL SIGNS No information MEDICATIONS Medication SIG (Take, Route, Frequency, Duration) Notes Start Da te End Date Status Ascorbic Acid 500 MG 1 tablet Orally Once a day for 30 day(s) Active Pregabalin 100 MG 1 capsule Orally Once a day Active Metoprolol Succinate 50 MG 1 capsule Orally Once a day for 30 day(s) Active Sildenafil Citrate 100 MG 1 tablet as needed Orally Once a day f or 30 day(s) Active Suphedrine Active Pantoprazole Sodium 40 MG 1 tablet Orally Once a day for 30 day(s) Active Vitamin B Complex - as directed Orally Active Fluticasone Propionate 50 MCG/ACT 1 spray in each nost ril Nasally Once a day for 30 day(s) Active Bactrim DS 800-160 MG 1 tablet Orally Twice a day for 10 day(s) Feb, Active Leflunomide 20 MG 1 tablet Orally Once a day for 30 day(s) Active BuPROPion HCl 100 MG 1 tablet Orally Twice a day for 30 day(s) Active Tiotropium [place] Monohydrate 2.5 MCG/ACT 2 puffs Inhalation Once a day Active PrednisoLONE 5 MG 1 tablet in the morning with food or milk Orally Once a day for 30 day(s) Active Cyanocobalamin 500 MCG 1 tablet Orally Once a day for 30 day(s) Active Bactrim DS 800-160 MG 1 tablet Orally Twice a day for 10 day(s) Active Lisinopril 5 MG 1 tablet Orally Once a day for 30 day(s) Active Rosuvastatin Calcium 40 MG 1 tablet Orally Once a day for 30 day(s) Active Theophylline 300 MG as directed Orally Active Ginseng 100 MG 1 capsule Orally Once a day for 30 day(s) Active Sulfamethoxazole-Trimethoprim 800-160 MG 1 tablet Orally bid for 30 Days Dec, Active Albuterol Sulfate HFA 108 (90 Base) MCG/ACT 1 puff as needed Inhalation every 4 hrs Active Ketoconazole 2 % 1 application Externally Once a day Active Hydrocodone-Acetaminophen 10-325 MG 1 tablet as needed Orally every 6 hrs Active Budesonide-Formoterol Fumarate 160-4.5 MCG/ACT 2 puffs Inhalatio n Twice a day Active PROCEDURES No Information RESULTS No Results REASON FOR VISIT UTI? Goals Section No Information Health Concerns No Information MEDICAL EQUIPMENT No Information MENTAL STATUS No Information FUNCTIONAL STATUS No Information ASSESSMENTS No Information PLAN OF TREATMENT Medication Medication Name Sig Start Date Stop Date Sulfamethoxazole-Trimethoprim 800-160 MG 1 tablet Orally bid for 30 Days Dec, Bactrim DS 800-160 MG 1 tablet Orally Twice a day for 10 day(s) Feb, Next Appt Details Provider Name:Linda Aldrich, 2020-02-10 2 09:00:00 AM, [address], [place], [address], Insurance Providers Payer Name Payer Address Payer Phone Insured Name Patient Relati onship to Insured Coverage Start Date Coverage End Date 'S [place] [address] [address] [facility] [id number] [address]Z
--- OUTSIDE RECORDS SUMMARY | 2020-04-04 08:08 | CCD ---
Author Author [employer] Organization [employer] [facility] Address Unknown Phone Unavailable Care Team Providers Care Officer Captain Name Role Phone Jaylon Burr Unavailable PROBLEMS Type Condition ICD9-CM Code [id number] Code Onset Dates Condition S tatus SNOMED Code Notes Problem Preop testing Z01.818 Active 036099645 Problem UTI (urinary tract infection) N39.0 Active 68 811472 Problem Bladder mass N32.89 Active [id number] ALLERGIES No Information ENCOUNTERS from 1950 to 2020-02-17 Encounter Location Date Provider Diagnosis [facility] [address] [facility] [place] [address] Feb Jaylon Burr IMMUNIZATIONS No Information SOCIAL [...] a day for 30 day(s) Active Tiotropium [place] Monohydrate 2.5 MCG/ACT 2 puffs Inhalation Once [...] Information RESULTS No Results REASON FOR VISIT Follow Up Goals Section No Information Health Concerns No Information MEDICAL EQUIPMENT No Information MENTAL STATUS No Information FUNCTIONAL STATUS No Information ASSESSMENTS No Information PLAN OF TREATMENT Medication Medication Name Sig Start Date Stop Date Sulfamethoxazole-Trimethoprim 800-160 MG 1 tablet Orally bid for 30 Days Dec, Bactrim DS 800-160 MG 1 tablet Orally Twice a day for 10 day(s) Feb, Insurance Providers Payer Name Payer Address Payer Phone Insured Name Patient Relati onship to Insured Coverage Start Date Coverage End Date 'S [place]MINSTRATION [place] [address] [address] [facility] [id number] PATTI LUGO
--- OUTSIDE RECORDS SUMMARY | 2020-04-04 08:08 | CCD ---
Author Author [facility] Organization [facility] Address Unknown Phone Unavailable Care Team Providers Care Wire Roller Name Role Phone Ray DUNCAN DPM Unavailable Unavailable Ray DUNCAN DPM Unavailable Unavailable Ray DUNCAN DPM Unavailable Unavailable Ray DUNCAN DPM Unavailable Unavailable Ray DUNCAN DPM Unavailable Unavailable Ray DUNCAN DPM Unavailable Unavailable Ray DUNCAN DPM Unavailable Unavailable Ray DUNCAN DPM Unavailable Unavailable Ray DUNCAN DPM Unavailable Unavailable Ray DUNCAN DPM Unavailable Unavailable Ray DUNCAN DPM Unavailable Unavailable Ray DUNCAN DPM Unavailable Unavailable Ray DUNCAN DPM Unavailable Unavailable Ray DUNCAN DPM Unavailable Unavailable Ray DUNCAN DPM Unavailable Unavailable Ray DUNCAN DPM Unavailable Unavailable Ray DUNCAN DPM Unavailable Unavailable Ray DUNCAN DPM Unavailable Unavailable Ray DUNCAN DPM Unavailable Unavailable Ray DUNCAN DPM Unavailable Unavailable Ray DUNCAN DPM Unavailable Unavailable Ray DUNCAN DPM Unavailable Unavailable Ray DUNCAN DPM Unavailable Unavailable Ray DUNCAN DPM Unavailable Unavailable Ray DUNCAN DPM Unavailable Unavailable Ray DUNCAN DPM Unavailable Unavailable Ray DUNCAN DPM Unavailable Unavailable MAJAK, R NAIF DPM Unavailable Unavailable MAJAK, R NAIF DPM Unavailable Unavailable MAJAK, R NAIF DPM Unavailable Unavailable Leny Cuellar MD Unavailable Unavailable Leny Cuellar MD Unavailable Unavailable Leny Cuellar MD Unavailable Unavailable Leny Cuellar MD Unavailable Unavailable Leny Cuellar MD Unavailable Unavailable Leny Cuellar MD Unavailable Unavailable [place], Roxane Cristian Unavailable Unavailable Cipriano, Roxane Cristian Unavailable Unavailable Cipriano, Roxane Cristian Unavailable Unavailable [place], Roxane Cristian Unavailable Unavailable [place], Roxane Cristian Unavailable Unavailable [place], Roxane Cristian Unavailable Unavailable Cipriano, Roxane Cristian Unavailable Unavailable [place], Roxane Cristian Unavailable Unavailable Ann, M Claire PA Unavailable Unavailable Ann, M Claire PA Unavailable Unavailable Ann, M Claire PA Unavailable Unavailable Ann, M Claire PA Unavailable Unavailable Ann, M Claire PA Unavailable Unavailable Ann, M Claire PA Unavailable Unavailable Ann, M Claire PA Unavailable Unavailable Ann, M Claire PA Unavailable Unavailable Ann, M Claire PA Unavailable Unavailable Ann, M Claire PA Unavailable Unavailable Ann, M Claire PA Unavailable Unavailable Ann, M Claire PA Unavailable Unavailable Ann, M Claire PA Unavailable Unavailable Ann, M Claire PA Unavailable Unavailable Ann, M Claire PA Unavailable Unavailable Ann, M Claire PA Unavailable Unavailable Ann, M Claire PA Unavailable Unavailable Ann, M Claire PA Unavailable Unavailable Ann, M Claire PA Unavailable Unavailable Ann, M Claire PA Unavailable Unavailable Ann, M Claire PA Unavailable Unavailable Ann, M Claire PA Unavailable Unavailable Ann, M Claire PA Unavailable Unavailable Ann, M Claire PA Unavailable Unavailable Ann, M Claire PA Unavailable Unavailable Ann, M Claire PA Unavailable Unavailable Ann, M Claire PA Unavailable Unavailable Ann, M Claire PA Unavailable Unavailable Ann, M Claire PA Unavailable Unavailable Ann, M Claire PA Unavailable Unavailable Ann, M Claire PA Unavailable Unavailable Ann, M Claire PA Unavailable Unavailable Ann, M Claire PA Unavailable Unavailable Ann, M Claire PA Unavailable Unavailable Ann, M Claire PA Unavailable Unavailable Ann, M Claire PA Unavailable Unavailable Ann, M Claire PA Unavailable Unavailable Ann, M Claire PA Unavailable Unavailable Ann, M Claire PA Unavailable Unavailable Ann, M Claire PA Unavailable Unavailable Ann, M Claire PA Unavailable Unavailable Ann, M Claire PA Unavailable Unavailable Ann, M Claire PA Unavailable Unavailable Ann, M Claire PA Unavailable Unavailable AnnNeeraj Claire PA Unavailable Unavailable Ann, M Claire PA Unavailable Unavailable Ann, M Claire PA Unavailable Unavailable GALGANO, CEM PABLO Unavailable Unavailable GALGANO, CEM PABLO Unavailable Unavailable GALGANO, CEM PABLO Unavailable Unavailable GALGANO, CEM PABLO Unavailable Unavailable GALGANO, CEM PABLO Unavailable Unavailable GALGANO, CEM PABLO Unavailable Unavailable GALGANO, CEM PABLO Unavailable Unavailable GALGANO, CEM PABLO Unavailable Unavailable GALGANO, CEM PABLO Unavailable Unavailable GALGANO, CEM PABLO Unavailable Unavailable GALGANO, CEM PABLO Unavailable Unavailable GALGANO, CEM PABLO Unavailable Unavailable GALGANO, CEM PABLO Unavailable Unavailable GALGANO, CEM PABLO Unavailable Unavailable GALGANO, CEM PABLO Unavailable Unavailable GALGANO, CEM PABLO Unavailable Unavailable GALGANO, CEM PABLO Unavailable Unavailable GALGANO, CEM PABLO Unavailable Unavailable GALGANO, CEM PABLO Unavailable Unavailable GALGANO, CEM PABLO Unavailable Unavailable GALGANO, CEM PABLO Unavailable Unavailable GALGANO, CEM PABLO Unavailable Unavailable GALGANO, CEM PABLO Unavailable Unavailable GALGANO, CEM PABLO Unavailable Unavailable GALGANO, CEM PABLO Unavailable Unavailable GALGANO, CEM PABLO Unavailable Unavailable GALGANO, CEM PABLO Unavailable Unavailable GALGANO, CEM PABLO Unavailable Unavailable GALGANO, CEM PABLO Unavailable Unavailable Kevin Bundy MD Unavailable Unavailable Kevin Bundy MD Unavailable Unavailable Kevin Bundy MD Unavailable Unavailable Keivn Bundy MD Unavailable Unavailable Kevin Bundy MD Unavailable Unavailable Kevin Bundy MD Unavailable Unavailable Kevin Bundy MD Unavailable Unavailable Kevin Bundy MD Unavailable Unavailable Kevin Bundy MD Unavailable Unavailable Kevin Bundy MD Unavailable Unavailable Kevin Bundy MD Unavailable Unavailable Kevin Bundy MD Unavailable Unavailable Kevin Bundy MD Unavailable Unavailable Kevin Bundy MD Unavailable Unavailable Kevin Bundy MD Unavailable Unavailable Kevin Bundy MD Unavailable Unavailable Kevin Bundy MD Unavailable Unavailable Kevin Bundy MD Unavailable Unavailable Kevin Bundy MD Unavailable Unavailable Kevin Bundy MD Unavailable Unavailable Kevin Bundy MD Unavailable Unavailable Kevin Bundy MD Unavailable Unavailable Kevin Bundy MD Unavailable Unavailable Kevin Bundy MD Unavailable Unavailable Keivn Bundy MD Unavailable Unavailable Kevin Bundy MD Unavailable Unavailable Kevin Bundy MD Unavailable Unavailable Kevin Bundy MD Unavailable Unavailable Kevin Bundy MD Unavailable Unavailable Kevin Bundy MD Unavailable Unavailable Kevin Bundy MD Unavailable Unavailable Kevin Bundy MD Unavailable Unavailable Kevin Bundy MD Unavailable Unavailable Bundy, Kevin Oseas MD Unavailable Unavailable Bundy, Kevin Farooq MD Unavailable Unavailable Bundy, Kevin Farooq MD Unavailable Unavailable Bundy, Kevin Farooq MD Unavailable Unavailable Bundy, Kevin Farooq MD Unavailable Unavailable Bundy, Kevin Farooq MD Unavailable Unavailable Bundy, Kevin Farooq MD Unavailable Unavailable Bundy, Kevin Farooq MD Unavailable Unavailable Bundy, Kevin Farooq MD Unavailable Unavailable Bundy, Kevin Farooq MD Unavailable Unavailable Bundy, Kevin Farooq MD Unavailable Unavailable Bundy, Kevin Farooq MD Unavailable Unavailable Bundy, Kevin Farooq MD Unavailable Unavailable Bundy, Kevin Farooq MD Unavailable Unavailable Bundy, Kevin Farooq MD Unavailable Unavailable Bundy, Kevin Farooq MD Unavailable Unavailable Bundy, Kevin Farooq MD Unavailable Unavailable Bundy, Kevin Farooq MD Unavailable Unavailable Re-disclosure Warning The records that you are about to access may contain information from federally-assisted alcohol or drug abuse programs. If such information is present, then the following federally mandated warning applies: This information has been disclosed to you from records protected by federal confidentiality rules (42 CFR part 2). The federal rules prohibit you from making any further disclosure of this information unless further disclosure is expressly permitted by the written consent of the person to whom it pertains or as otherwise permitted by 42 CFR part 2. A general authorization for the release of medical or other information is NOT sufficient for this purpose. The Federal rules restrict any use of the information to criminally investigate or prosecute any alcohol or drug abuse patient.The records that you are about to access may contain highly sensitive health information, the redisclosure of which is protected by Article 27-F of the [facility] Public Health law. If you continue you may have access to information: Regarding HIV / AIDS; Provided by facilities licensed or operated by the [facility] Office of Mental Health; or Provided by the [facility] Office for People With Developmental Disabilities. If such information is present, then the following [facility] mandated warning applies: This information has been disclosed to you from confidential records which are protected by state law. State law prohibits you from making any further disclosure of this information without the specific written consent of the person to whom it pertains, or as otherwise permitted by law. Any unauthorized further disclosure in violation of state law may result in a fine or mcfp sentence or both. A general authorization for the release of medical or other information is NOT sufficient authorization for further disc losure. Encounters Encounter Providers Location Date Indications Data Source(s ) Outpatient Attender: CEM ACOSTA MD [id number] 03/13/2020 1 2:00:00 AM EST Unspecified kyphosis, cervical region [facility] Unspecified kyphosis, cervical region Outpatient Attender: Claire MUNOZ 03/05 11:29:00 AM EST - 03/05/2020 11:29:00 AM EST [facility] Unknown [address] [facility] [address] 02/15/2020 12:00:00 AM EST eCW1 ([facility]) [place] [address] [facility] [place] [address] 02/13/2020 12:00:00 AM EST eCW1 ([facility]) Outpatient Attender: Oseas Echevarria/Deyanira/Edouard/R einelson 02/01/2020 12:00:00 PM EST [facility] ([facility] [place] [address] [facility] [place] [address] 01/13/2020 12:00:00 AM EST eCW1 ([facility]) Outpatient Admitter: Leny Cuellar MDReferrer: Leny Cuellar MD 01/10/2020 12:00:00 AM EST - 01/10/2020 11:59:00 PM EST Unspecified B-cell lymphoma, unspecified site [facility] Unspecified B-cell lymphoma, unspecified site Outpatient Attender: NAIF DUNCAN [facility] Office 12/10 01:15:00 PM EST [facility] ([facility] Outpatient Attender: Oseas Echevarria/Deyanira/Edouard/R eiannmariel 12/27/2019 01:00:00 PM EST [facility] ([facility] [place] [address] [facility] [place] [address] 12/23/2019 12:00:00 AM EST eCW1 ([facility]) [place] [address] [facility] [place] [address] 12/23/2019 12:00:00 AM EST eCW1 ([facility]) Outpatient [address] [facility] [place] [address] 12/20/2019 12:00:00 AM EST eCW1 ([facility]) Outpatient Attender: Cristian Echevarria/Deyanira/Edouard/Quincy 08/03/2019 11:00:00 AM EDT [facility] ([facility], ) Medications Medication Brand Name Start Date Product Form Dose Route Admi nistrative Instructions Pharmacy Instructions Status Indications Reaction Description Data Source(s) 10 mg 03/28/2020 12:00:00 AM EST tablet 40 TAKE 4 TABLETS BY MOUTH DAILY FOR 4 DAYS, THEN TAKE 3 TABLETS DAILY FOR 4 DAYS, THEN TAKE 2 TABLETS DAILY FOR 4 DAYS, THEN TAKE 1 TABLET DAILY FOR 4 DAYS, THEN STOP TAKE 4 TABLETS BY MOUTH DAILY FOR 4 DAYS, THEN TAKE 3 TABLETS DAILY FOR 4 DAYS, THEN TAKE 2 TABLETS DAILY FOR 4 DAYS, THEN TAKE 1 TABLET DAILY FOR 4 DAYS, THEN STOP SOLD: 03/28/2020 [facility] Prednisone 10 MG Oral Tablet Prednisone 03/28/2020 12:00:00 AM EST ORAL active MEDENT ([facility], ) Sulfamethoxazole 800 MG / Trimethoprim 1 60 MG Oral Tablet [Bactrim] Bactrim DS 800-160 MG Bactrim DS 800-160 MG 02/14/2020 12:00:00 AM EST 1.0 {table t} active Bactrim DS 800-160 MG eCW1 ( Pending Sale To [facility]) Sulfamethoxazole 800 MG / Trimethoprim 1 60 MG Oral Tablet [Bactrim] Bactrim DS 800-160 MG Bactrim DS 800-160 MG 02/14/2020 12:00:00 AM EST 1.0 {table t} active Bactrim DS 800-160 MG eCW1 ( Pending Sale To [facility]) 10 mg 12/27/2019 12:00:00 AM EST tablet 40 TAKE 4 TABLETS BY MOUTH ONCE DAILY FOR 4 DAYS, THEN 3 TABLETS DAILY FOR 4 DAYS, THEN 2 TABLETS DAILY FOR 4 DAYS, THEN 1 TABLET DAILY FOR 4 DAYS, THEN STOP TAKE 4 TABLETS BY MOUTH ONCE DAILY FOR 4 DAYS, THEN 3 TABLETS DAILY FOR 4 DAYS, THEN 2 TABLETS DAILY FOR 4 DAYS, THEN 1 TABLET DAILY FOR 4 DAYS, THEN STOP SOLD: 12/28/2019 [facility] Prednisone 10 MG Oral Tablet Prednisone 12/27/2019 12:00:00 AM EST ORAL completed MED[facility] ([facility], ) Sulfamethoxazole 800 MG / Trimethoprim 1 60 MG Oral Tablet Sulfamethoxazole- Trimethoprim 800-160 MG Sulfamethoxazole-Trimethoprim 800-160 MG 12/23/2019 12:00:00 AM EST 1.0 {tablet} active Sulfamethoxazole-Trimethoprim 800-160 MG eCW1 (Pending Sale To [facility]) Sulfamethoxazole 800 MG / Trimethoprim 1 60 MG Oral Tablet Sulfamethoxazole- Trimethoprim 800-160 MG Sulfamethoxazole-Trimethoprim 800-160 MG 12/23/2019 12:00:00 AM EST 1.0 {tablet} active Sulfamethoxazole-Trimethoprim 800-160 MG eCW1 (Pending Sale To [facility]) Sulfamethoxazole 800 MG / Trimethoprim 1 60 MG Oral Tablet Sulfamethoxazole- Trimethoprim 800-160 MG Sulfamethoxazole-Trimethoprim 800-160 MG 12/23/2019 12:00:00 AM EST 1.0 {tablet} active Sulfamethoxazole-Trimethoprim 800-160 MG eCW1 (Pending Sale To [facility]) Sulfamethoxazole 800 MG / Trimethoprim 1 60 MG Oral Tablet Sulfamethoxazole- Trimethoprim 800-160 MG Sulfamethoxazole-Trimethoprim 800-160 MG 12/23/2019 12:00:00 AM EST 1.0 {tablet} active Sulfamethoxazole-Trimethoprim 800-160 MG eCW1 (Pending Sale To [facility]) Sulfamethoxazole 800 MG / Trimethoprim 1 60 MG Oral Tablet Sulfamethoxazole- Trimethoprim 800-160 MG Sulfamethoxazole-Trimethoprim 800-160 MG 12/23/2019 12:00:00 AM EST 1.0 {tablet} active Sulfamethoxazole-Trimethoprim 800-160 MG eCW1 (Pending Sale To [facility]) Sulfamethoxazole 800 MG / Trimethoprim 1 60 MG Oral Tablet Sulfamethoxazole- Trimethoprim 800-160 MG Sulfamethoxazole-Trimethoprim 800-160 MG 12/23/2019 12:00:00 AM EST 1.0 {tablet} active Sulfamethoxazole-Trimethoprim 800-160 MG eCW1 (Pending Sale To [facility]) 40 mg 11/25/2019 12:00:00 AM EDT tablet,delayed release (DR/EC) 20 TAKE ONE TABLET BY MOUTH TWICE A DAY TAKE ONE TABLET BY MOUTH TWICE A DAY SOLD: 11/25/2019 [facility] Sodium Phosphate, Dibasic 35.5 MG/ML / S odium Phosphate, Monobasic 96.4 MG/ML Enema Fleet Enema 08/03/2019 12:00:00 AM EDT activ e MED[facility] ([facility], ) Insurance Providers Payer name Policy type / Coverage type Policy ID Covered green party ID Covered green party's relationship to us Policy Us Plan Information 'S ADMINISTRATION [id number] SP [id number] [facility] [id number] SP [id number] WELLCARE [id number] SP [id number] OTHER B [id number] Self [id number] OTHER [id number] Self [id number] VA CCN OPTUM [id number] 18 [id number] HUMANA MEDICARE ADVANTAGE G [id number] Self [id number] OTHER B [id number] Self [id number] 'S ADMINISTRATION UNK SP UNK OPTUM VA O [id number] S [id number] 'S ADMINISTRATION [id number] SP [id number] CT Veterans Choice Program VACAA F [id number] SELF [id number] SELF PAY UNAVAILABLE UNAVAILA BLE MEDICARE C [id number] S [id number] A [facility]/136[facility] O [id number] S [id number] MEDICARE [id number] SP [id number] A MEDICARE UNAVAILABLE SP UNAVAILA BLE [facility] P [id number] S [id number] P UNAVAILABLE UNAVAILA BLE Problems, Conditions, and Diagnoses Code Display Name Description Problem Type Effective Dates Data Source(s) N39.0 Urinary tract infectious disease UTI (urinary tract in fection) Problem 01/18/2020 12:00:00 AM EST eCW1 (Pending Sale To [facility]) Z01.818 Pre-procedure evaluation check Preop testing Problem 01/18/2020 12:00:00 AM EST eCW1 (Pending Sale To [facility]) [id number] Ingrowing nail Ingrowing nail Problem 12/30/2019 12:00: 00 AM EST [facility] ([facility] [id number] Onychomycosis Onychomycosis Problem 12/30/2019 12:00:00 AM EST [facility] ([facility] [id number] Pain in limb Pain in limb Problem 12/30/2019 12:00:00 A M EST [facility] ([facility] N32.89 Bladder mass Bladder mass Problem 12/20/2019 12:00:00 A M EST eCW1 (Pending Sale To [facility]) [id number] Essential hypertension Essential hypertension Problem 08/03/2019 12:00:00 AM EDT [facility] ([facility], ) M40.202 Unspecified kyphosis, cervical region Un specified kyphosis, cervical region Diagnosis 03/13/2020 08:17:24 AM EST [facility] C85.10 Unspecified B-cell lymphoma, unspecified site Unspecified B-cell lymphoma, unspecified site Diagnosis 01/10/2020 01:33:00 PM EST [facility] Surgeries/Procedures Procedure Description Date Indications Data Source(s) DEBRIDEMENT NAIL ANY METHOD 03/08/2020 12:00:00 AM EST [facility] ([facility] Bronchospasm Evaluation 01/31/2020 12:00:00 AM EST [facility] ([facility], ) Maximum Breathing Capacity, Maximal Voluntary Ventilation 01/31/2020 12:00:00 AM EST MED[facility] ([facility]) Plethysmography Determination Lung Volumes & Per Airway Resi st 01/31/2020 12:00:00 AM EST MED[facility] ([facility], ) DIFFUSING CAPACITY 01/31/2020 12:00:00 AM EST [facility] ([facility], ) DEBRIDEMENT NAIL ANY METHOD 12/29/2019 12:00:00 AM EST [facility] ([facility] Colonoscopy Flexible Proximal To Splenic Flexure W/Biopsy Si ngle/ 08/24/2019 12:00:00 AM EDT [facility] ([facility], ) Results ID Date Data Source [id number] 03/31/2020 10:00:00 AM EST [facility] Name Value Range Interpretation Code Description Data Velia rce(s) Supporting Document(s) SARS coronavirus 2 RNA Not Detected [facility] [place] This lab was ordered by [facility] and reported by [facility]. ID Date Data Source [id number] 03/13/2020 04:02:54 PM [facility] Name Value Range Interpretation Code Description Data Velia rce(s) Supporting Document(s) Progress Note [facility] [id number] lbm [file] [id number]= ID Date Data Source [id number] 02/11/2020 09:00:00 AM EST [facility] Name Value Range Interpretation Code Description Data Velia rce(s) Supporting Document(s) SARS coronavirus 2 RNA [facility] This lab was ordered by [facility] and reported by [facility]. ID Date Data Source [id number] 01/11/2020 01:00:00 PM EST [facility] Name Value Range Interpretation Code Description Data Velia rce(s) Supporting Document(s) SARS coronavirus 2 RNA [facility] This lab was ordered by [facility] and reported by [facility]. ID Date Data Source [id number] 01/11/2020 11:18:00 AM EST [facility] Hematopathology Report See Addendum [facility] [place] wName: PATTI LUGOMRN: [id number] Number: [id number] Date: 01/10/2020 00:00Received Date: 01/10/2020 13:49Physician(s): LENY CUELLAR MD HAGHIR, SHAHANDEH F,[facility] To:[facility]ITAL[facility]imen(s) ReceivedA: Bone Marrow, Flow Cytometry; Received 1 green top BM, 1 aspirate smear,and 1 PB smear (1 EDTA BM to Molecular)Clinical HistoryHistory of follicular lymphoma, staging.TEST REQUESTED/PERFORMED: Flow cytometry analysis DiagnosisFlow cytometry of bone marrow: No phenotypic evidence of involvement byfollicular lymphoma, only decreased CD4/CD8 ratio and increased cytotoxicT cells, favor reactive.Gale Sun MD ; Hematopathology FellowElectronically Signed By RACHEL PERALTA M.D. Attending Pathologist 01/11/202011:18:49The attending pathologist named above attests that he/she has personallyreviewed the relevant preparation(s) for the specimen(s) and rendered thefinal diagnosis. 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 As no abnormalitieswere detected by karyotype analysis, the FISH study was canceled by Dr. Aburto.Loss of the Y chromosome in the bone marrow cells is considered an agerelated phenomenon in elderly males. Occasionally, it may also be adisease related change. 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 This finding is ofunknown significance. Diagnosis remains unchanged. Addendum Electronically Signed By: RACHEL PERALTA M.D. 01/17/2020 11:14 ProceduresFlow Cytometry Date Ordered:01/10/2020 Status: Signed Out01/11/2020 InterpretationPERIPHERAL BLOOD: CBC performed at [facility] (01/10/20)WBC *15.1 K/uLRBC 4.55 M/uLHgb *12.9 g/dLHct *41.9 %MCV 92.1 fLMCH 28.4 pgMCHC *30.8 g/dLRDW *16.6 %Platelets 211 K/ulBONE MARROW ASPIRATE:Differential Count (100 cells): 9 % Erythroid Precursors 2 % Blasts 1 % Promyelocytes 5 % N. Myelocytes 9 % N. Metam yelocytes and Band Forms60 % Neutrophils 9 % Lymphocytes 5 % Monocytes--------100 % Morphology: Hemodilute bone marrow.Lymphoid Panel: Laura Medina [id number] following markers were assayed: CD45 (gate), CD2, CD3, CD4, CD5, CD7,CD8, CD10, CD11c, CD19, CD20, CD22, CD23, CD25, CD33, CD34, CD38, CD56,CD57, CD64, CD103, CD117, CD123, HLA-DR, Thurmont, Lambda, and FMC7.# events: [id number]: 88%Flow Cytometry Differential (CD45/SSC)Lymphocyte Dallas: 7%CD45 dim [place]: 0%Monocyte [place]: 4%Granulocyte [place]: 78%Nucleated/Erythroid [place]: 8%The lymphocyte gate showsB-cells (CD19): 3%T- cells (CD3): 80%NK-cells (CD3-/CD56+): 11%Thurmont/Lambda Ratio: 1.0CD4/CD8 Ratio: 0.4Results: (expressed as % of lymphocyte gate)B-cell markers: Thurmont = 1, Lambda = 1, CD19 = 2, CD20 = 6, CD22 = 3,CD19/10 = 0, CD19/CD5 = 0, CD19/CD23 = 1, FMC7 = 1, CD38/CD20 = 4Light chain as % of B-Cells: CD19/Thurmont = 43, CD19/Lambda = 43CD19/CD5/Thurmont = 3, CD19/CD5/Lambda = 4CD19/CD10/Thurmont = 1, CD19/CD10/Lambda = 0CD38 on CD19/5 positive cells: 100%T-cell Markers: CD2 = 90, CD3 = 80, CD3/CD4 = 26, CD3/CD8 = 53, CD5 = 83,CD7 = 86, CD3/57 = 36NK-cell Markers: CD56 = 22, CD57 = 44Other Markers: CD25 = 20, CD103 = 3, CD11c = 21, CD103/CD11c = 1, CD103/25= 2, CD103/22 = 0 CD10 = 1, CD38 = 46Results: (expressed as % of CD45 dim gate)B-cell markers: Thurmont = 2, Lambda = 10, CD19 = 14, CD20 = 24, CD22 = 3,CD19/10 = 4, CD19/CD5 = 0, CD19/CD23 = 1, FMC7 = 1, CD38/CD20 = 24Light chain as % of B-Cells: CD19/Thurmont = 86, CD19/Lambda = 595MS78/CD10/Thurmont = 0, CD19/CD10/Lambda = 0T-cell Markers: CD2 = 2, CD3 = 0, CD3/CD4 = 46, CD3/CD8 = 7, CD5 = 0, CD7= 5, CD3/57 = 0NK-cell Markers: CD56 = 0, CD57 = 0Basophil Markers: CD123 (HLA-DR-) = 1Other Markers: CD10 = 6, CD38 = 94, CD33 = 36, CD34 = 18, CD64 = 6, CD117= 11, CD123 = 3, HLA-DR = 96, CD25 = 32, CD103 = 0, CD11c = 86 Results-CommentsLymphocytes consist predominantly of T cells with normal expression of panT-cell markers and decreased CD4/CD8 ratio, normal proportions of NK andcytotoxic T cells, and polyclonal B cells.CD34+ blasts comprise fewer than 1% of cells studied. Blasts, monocytes,and granulocytes show no definitive immunophenotypic aberrancies. Procedure Electronically Signed By:RACHEL PERALTA M.D.01/11/2020 This report may include one or more immunohistochemical stain/fluorochromeconjugated monoclonal antibody results that use analyte specific reagents.All positive and negative controls have been reviewed by the attendingpathologist and are satisfactory. The tests were developed and theirperformance characteristics determined by [facility].They have not been cleared or approved by the US Food and DrugAdministration. The FDA has determined that such clearance or approval isnot necessary. Name Value Range Interpretation Code Description Data Velia rce(s) Supporting Document(s) ID Date Data Source [id number] 01/16/2020 04:48:00 PM [facility] Cytogenetics ReportName: PATTI LUGO Number: [id number] Date: 01/10/2020 00:00Received Date: 01/10/2020 13:52Physician(s): LENY CUELLAR MD Haghir, Shahandeh MDSpecimen(s) ReceivedA: Bone Marrow - Karyotype analysis and FISHClinical [id number]-[id number] patient with history of follicular lymphoma, staging.TEST REQUESTED/PERFORMED: Karyotype Analysis and Fluorescence in situhybridization - FISH DiagnosisAbnormal male karyotype with loss of the Y chromosome. As no abnormalitieswere detected by karyotype analysis, the FISH study was canceled by Dr. Aburto.Loss of the Y chromosome in the bone marrow cells is considered an agerelated phenomenon in elderly males. Occasionally, it may also be adisease related change. Loss of the Y chromosome is also seen in varioushematological disorders, primarily as a secondary change. Please correlatewith the concurrent Hematopathology report [id number]. Electronically Signed By Richar Ovalle, Ph.D., [facility], Director ofCytogenetics 01/16/2020 16:48:53Gross DescriptionChromosome Unygkcxu43,X,-Y[6]/46,XY[14] DescriptionAn abnormal male karyotype with loss of the Y chromosome was observed insix of twenty metaphases analyzed. Fourteen metaphases were chromosomallynormal. Test DataSpecimen Processed: Bone Marrow Chromosome Analysis:Metaphases Counted Metaphases Analyzed Metaphases Karyotyped BandingTechnique Band Resolution Culture 20 20 4 GTL 400-500 72 HR [id number]/ [id number] Disclaimer: Conventional chromosome analysis may not detectsub microscopic chromosome aberrations or low level mosaicism. Name Value Range Interpretation Code Description Data Velia rce(s) Supporting Document(s) ID Date Data Source [id number] 12/16/2019 12:00:00 AM EST [facility] Matilde Flood MD Patient Name: PATTI LUGO [address] Date of : 1950[place] [address] Date of Exam: 12/16/2019#: Fax: [phone] EXAM: MRI CERVICAL SPINE WITHOUT CONTRASTCLINICAL INFORMATION: Spondylolisthesis. Cervical region. History ofrheumatoid arthritis.No comparison cervical spine imaging.TECHNIQUE:3T multiplanar MRI imaging of the cervical spine was obtained using varioussequences.MRI FINDINGS:There is reversal of the normal cervical lordosis with norma cervicalkyphosis. There is 5 mm Grade I C3-4 spondylolisthesis. At C3-4, there isdiffuse disc bulging. The spondylolisthesis in combination with the discbulging and dorsal ligamentum flavum hypertrophy produce central canalstenosis at this level. The midline AP dimension of the thecal sac at C3-4is 7.5 mm. There is some ill-defined increased T2 signal intensity withinthe substance of the cervical cord at the C3-4 disc consistent with cordedema/early myelomalacia. No cord atrophy is seen. There is evidence ofbilateral neural foraminal narrowing at C3-4, left greater than right.At C2-3, there is facet osteoarthritic hypertrophy, right greater thanleft. No cord compression or foraminal narrowing is seen.At C4-5, there is minimal diffuse disc bulging. Mild uncovertebralspurring is present bilaterally at C4-5. No cord compression is seen.At C5-6, there is a left paracentral focal disc protrusion in addition todiffuse disc bulging. This effaces the ventral subarachnoid space andsubtly flattens the ventral margin of the cord. There is bilateraluncovertebral spurring at C5-6. Neural foramina are narrowed.At C6-7, there is diffuse disc bulging. Bilateral uncovertebral spurringis present. No cord compression is seen.At C7-T1 and T1-2, there is central disc bulging without obvious cordcompression.IMPRESSION:Degenerative disc disease and spondylosis. Cervical kyphosis. At the C3-4level, the dominant abnormality is central canal stenosis and evidence ofintramedullary cord edema vs. early myelomalacia due to central canalstenosis from C3-4 degenerative spondylolisthesis and associated discbulging and ligamentum flavum hypertrophy. There is multi-level bilateralneural foraminal narrowing including the C3-4 level.Accredited by the [employer] in .SAMANTHA Hodges/Jermaine you for referring PATTI LUGO to our office. Electronically Signed - CLAIRE BUTT MD 12/16/19 16:41 Name Value Range Interpretation Code Description Data Velia rce(s) Supporting Document(s) ID Date Data Source [id number] 08/24/2019 08:08:00 AM EDT [facility] ([facility]) Name Value Range Interpretation Code Description Data Velia rce(s) Supporting Document(s) Surgical pathology study Laboratory test result [facility] ([facility]) FINAL DIAGNOSIS Transverse colon polyp, polypectomy: Fragments of hyperplastic polyp. 08/25/2019 - 133 CLINICAL DIAGNOSIS Colon polyps 08/24/2019 - 154 GROSS DIAGNOSIS Received in formalin labeled "biopsy transverse colon" are two fragments of chua soft tissue measuring 0.4 and 0.5 cm. All in one. -YZ 08/24/2019 - 154 Signed Tammy Hung M.D. 08/25/2019 133 ID Date Data Source [id number] 08/20/2019 08:10:00 AM EDT [facility] Name Value Range Interpretation Code Description Data Velia rce(s) Supporting Document(s) SARS coronavirus 2 RNA [facility] This lab was ordered by [facility] and reported by [facility]. Procedure Vital Signs ID Date Data Source UNK Name Value Range Interpretation Code Description Data Source(s) Body surface area Derived from formula 2.18 m2 2.18 m2 [facility] ([facility]) Body weight 98.431 kg 98.431 kg [facility] ([facility]) [place] body weight 172 [lb_av] 172 [lb_av] [facility] Body mass index (BMI) [Ratio] 30.3 kg/m2 30.3 k g/m2 [facility] ([facility]) Body weight 217.00 [lb_av] 217.00 [lb_av] [facility] Body height 71 [in_i] 71 [in_i] [facility] ([facility]) 5'11" Oxygen saturation in Arterial blood by Pulse oximetry 91 % 91 % [facility] ([facility]) Room Air Heart rate 108 /min 108 /min [facility] ([facility]) Diastolic blood pressure 80 mm[Hg] 80 mm[Hg] [facility] ([facility]) Systolic blood pressure 118 mm[Hg] 118 mm[Hg] [facility] ([facility], ) Body mass index (BMI) [Ratio] 30.0 kg/m2 30.0 k g/m2 [facility] ([facility] Heart rate 84 /min 84 /min [facility] ([facility] Diastolic blood pressure 60 mm[Hg] 60 mm[Hg] [facility] ([facility] Systolic blood pressure 128 mm[Hg] 128 mm[Hg] [facility] ([facility] Body weight 215.00 [lb_av] 215.00 [lb_av] [facility] ([facility] Body height 71 [in_i] 71 [in_i] [facility] ([facility] 5'11" [place] body weight 172 [lb_av] 172 [lb_av] [facility] Body height 71 [in_i] 71 [in_i] [facility] ([facility], ) 5'11" Oxygen saturation in Arterial blood by Pulse oximetry 89 % 89 % [facility] ([facility], ) 90 ra Heart rate 70 /min 70 /min [facility] ([facility], ) Diastolic blood pressure 60 mm[Hg] 60 mm[Hg] [facility] ([facility], ) Systolic blood pressure 100 mm[Hg] 100 mm[Hg] [facility] ([facility], ) Diastolic blood pressure 52 mm[Hg] 52 mm[Hg] eCW1 ([facility]) Systolic blood pressure 100 mm[Hg] 100 mm[Hg] e CW1 ([facility] To [facility]) Body temperature 98.4 [degF] 98.4 [degF] eCW1 ( [facility]) Respiratory rate 18 /min 18 /min eCW1 ([facility]) Heart rate 80 /min 80 /min eCW1 ([facility]) Body mass index (BMI) [Ratio] 31.13 kg/m2 31.13 kg/m2 eCW1 ([facility] To [facility]) Body height 70 [in_i] 70 [in_i] eCW1 ([facility]) Body weight 217 [lb_av] 217 [lb_av] [facility] Body surface area Derived from formula 2.16 m2 2.16 m2 [facility] ([facility]) Body weight 96.163 kg 96.163 kg [facility] ([facility]) [place] body weight 172 [lb_av] 172 [lb_av] [facility] ([facility]) Body mass index (BMI) [Ratio] 29.6 kg/m2 29.6 k g/m2 [facility] ([facility]) Body weight 212.00 [lb_av] 212.00 [lb_av] [facility] Body height 71 [in_i] 71 [in_i] [facility] ([facility]) 5'11" Diastolic blood pressure 80 mm[Hg] 80 mm[Hg] [facility] ([facility]) Systolic blood pressure 130 mm[Hg] 130 mm[facility]Hg[facility] Patient Treatment Plan of Care Planned Activity Planned Date Details Description Data Source (s) Sulfamethoxazole 800 MG / Trimethoprim 160 MG Oral Tab let [Bactrim] 02/14/2020 12:00:00 AM EST eCW1 ([facility]) Sulfamethoxazole 800 MG / Trimethoprim 160 MG Oral Tab let [Bactrim] 02/14/2020 12:00:00 AM EST eCW1 ([facility]) Sulfamethoxazole 800 MG / Trimethoprim 160 MG Oral Tab let 12/23/2019 12:00:00 AM EST eCW1 ([facility]) Sulfamethoxazole 800 MG / Trimethoprim 160 MG Oral Tab let 12/23/2019 12:00:00 AM EST eCW1 ([facility]) Sulfamethoxazole 800 MG / Trimethoprim 160 MG Oral Tab let 12/23/2019 12:00:00 AM EST eCW1 ([facility]) Sulfamethoxazole 800 MG / Trimethoprim 160 MG Oral Tab let 12/23/2019 12:00:00 AM EST eCW1 ([facility]) Sulfamethoxazole 800 MG / Trimethoprim 160 MG Oral Tab let 12/23/2019 12:00:00 AM EST eCW1 ([facility]) Sulfamethoxazole 800 MG / Trimethoprim 160 MG Oral Tab let 12/23/2019 12:00:00 AM EST eCW1 ([facility])
[2020-04-04] MEDS ORDERED: ONDANSETRON 4MG/2ML VIAL As Ordered ONE (08:39)
[2020-04-04] MEDS ORDERED: dexameTHASONE 4 MG/ML 1ML VIAL (J1100 PER 1MG) As Ordered ONE (08:39)
[2020-04-04] MEDS ORDERED: MIDAZOLAM INJ 2MG/2ML VIAL (J2250 PER 1MG) As Ordered ONE (08:39)
[2020-04-04] MEDS ORDERED: LIDOCAINE 2% 100MG/5ML SDV (FOR ANES.) As Ordered ONE (08:39)
[2020-04-04] MEDS ORDERED: fentaNYL 100 MCG/2 ML INJECTION (J3010) As Ordered ONE (08:39)
[2020-04-04] MEDS ORDERED: propofoL 200 MG/20 ML VIAL As Ordered ONE (08:39)
[2020-04-04] MEDS ORDERED: ROCURONIUM BROMIDE 50 MG/5 ML VIAL As Ordered ONE (08:39)
[2020-04-04] MEDS ORDERED: ePHEDrine SULFATE 25 MG/5 ML(5MG/ML) SYRINGE As Ordered ONE (08:45)
[2020-04-04] MEDS ORDERED: LIDOCAINE VISCOUS 2% SOLN 15ML UDC As Ordered ONE (09:26)
[2020-04-04] MEDS ORDERED: LIDOCAINE 4% TOPICAL SOLN 50 ML BTL As Ordered ONE (09:26)
[2020-04-04] MEDS ORDERED: EPINEPHrine 1MG/10ML SYRINGE 1.5IN As Ordered ONE (09:26)
[2020-04-04] MEDS ORDERED: LIDOCAINE 1% SDV 30ML VIAL As Ordered ONE (09:26)
[2020-04-04] MEDS ORDERED: THROMBIN SOLN 5,000 UNITS VIAL As Ordered ONE (09:26)
[2020-04-04] MEDS ORDERED: CETACAINE SPRAY 5GM As Ordered ONE (09:27)
[2020-04-04] MEDS ORDERED: PHENYLephrine 500MCG 5ML (100MCG/ML) SYRINGE As Ordered ONE (10:44)
[2020-04-04] MEDS ORDERED: SUGAMMADEX SODIUM 500 MG/5 ML VIAL (BRIDION) As Ordered ONE (10:46)
--- NOTE | 2020-04-04 11:19 | RO ---
OPERATIVE NOTE DATE OF OPERATION: 04/04/2020 PREOPERATIVE DIAGNOSIS: POSTOPERATIVE DIAGNOSIS: PROCEDURE: Fiberoptic bronchoscopy with navigational assistance wish washes, brushes, and biopsies both endobronchial and transbronchial, as well as photos and placement of fiducial markers. SURGEON: Oseas Bundy M.D. SEQUINS SPOOLER: Rose Morris M.D. ANESTHESIA: General. CONSENT: Informed consent was obtained prior to the procedure. OPERATIVE FINDINGS: 1. Diffuse changes of chronic obstructive bronchitis. 2. Significant endobronchial disease of the left upper lobe. 3. Right lower lobe nodule. DESCRIPTION OF PROCEDURE: After the patient was identified and the above anesthesia given, the fiberoptic bronchoscope was easily passed through the existing endotracheal tube. The tube was in good position above the garfield. Thick tenacious secretions were encountered and these were suctioned clear. In sequential fashion, all segments of the left upper and lower lobes were easily identified. Secretions were cleared. There was very significant diffuse endobronchial abnormalities that appeared either submucosal mainly or almost exophytic throughout the left upper lobe. The lingula, however, itself was clear. The remainder of the left lung was without other significant abnormalities. The right lung was then entered with upper, middle, and lower lobes easily identified and widely patent. Diffuse changes of chronic bronchitis were noted. Thick secretions were again encountered that were suction lavaged clear. The navigational portion of the procedure was then undertaken. With navigational assistance, we were able to navigate to the right lower lobe lesion. It was able to be seen on fluoroscopy. Transbronchial biopsies under navigational assistance were taken and these were identified by the cytology tech. Brushes were then taken of the area and fiducial markers were placed. Only minimal bleeding was encountered, but topical thrombin was placed. Standard bronchoscopy was then employed to deal with the endobronchial abnormalities of the left upper lobe. Multiple biopsies were taken of the area endobronchially. Cytology brush was then also done and a bronchoalveolar lavage of the left upper lobe was then performed using 60 mL of normal saline with good return. Three mL of topical epinephrine were applied. When adequate hemostasis was assured, the scope was then withdrawn and the procedure terminated. Fluoroscopic examination post-procedure showed no evidence of pneumothorax on the right. A film was ordered for one hour post-procedure. Care was then turned over to the anesthesia department for extubation. No immediate complications were identified.
[2020-04-04] MEDS ORDERED: PERCOCET 5MG/325MG TAB As Ordered ONE (11:36)
[2020-04-04] MEDS: PERCOCET 5MG/325MG TAB PO PRN ×2 (11:37→12:27)
[2020-04-04] MEDS ORDERED: LR 1,000 ML IV SCH (12:05)
[2020-04-04] MEDS ORDERED: ONDANSETRON 4 MG ORAL DISINTEGRATING TAB PO PRN (12:05)
--- NOTE | 2020-04-04 12:15 | REP ---
INDICATION: S/P Bronch. ordered for 1200.. COMPARISON: 08/31/2014. TECHNIQUE: SINGLE PORTABLE AP VIEW OF THE CHEST WAS PERFORMED. FINDINGS: There is no acute infiltrate or pneumothorax. Two metallic clips are seen medially in the right lung base. Linear fibro atelectatic changes seen in each lung base, with mild elevation of the left hemidiaphragm. The heart is not enlarged. There is some tortuosity and ectasia of the thoracic aorta. Right central venous catheter is present with the tip in the superior vena cava. IMPRESSION: No pneumothorax or acute infiltrate. <Electronically signed by Sarabjit Kim > 04/04/20 1211
[2020-04-04 13:40] VITALS: BP 155/83
[2020-04-04 14:04] LABS: APPEARANCE CLOUDY (CLEAR); COLOR PINK (COLORLESS); SOURCE LEFT UPPER LOBE
[2020-04-05 10:57] LABS: MONOCYTES/MACROPHAGES, BAL 15 %
== END 2020-04-04 14:05 | disposition home or self-care (01) ==
LOC: M SDC 08:02
PROVIDERS: ATTEND Internal Medicine Pulmonary Disease
DX: R91.8 Other nonspecific abnormal finding of lung field (principal); R91.1 Solitary pulmonary nodule; J44.9 Chronic obstructive pulmonary disease, unspecified; F17.218 Nicotine dependence, cigarettes, with other nicotine-induced disorders; M06.9 Rheumatoid arthritis, unspecified
CPT/HCPCS: 31623; 31625; 31626; 31627; 31628; 71045; 76000; 87070; 87077; 87102; 87116; 87186; 87205; 87206; 88104; 88108; 88305; 88313; 89051; A4648; J1100; J2250; J2370; J2405; J3010

== ENCOUNTER → 2020-05-17 | Outpatient (CLI) | payer OTHER ==
[~2020-05-17] MED LIST changes: -ALBUTEROL SULFATE 2.5 MG/0.5 ML INH NEB SOLN INH ONE; +CIPR-249 PO; -LIDOCAINE 1% MDV 20ML VIAL SQ PRN; -LIDOCAINE 4% INJ 5ML AMP INH ONE; -LR 1,000 ML IV ONE
--- NOTE | 2020-05-17 11:02 | RADONC ---
Radiation Oncology Hx/FUP Radiation Oncology Hx/FUP Date of Service: May 17, 2020 Pt Identifier Adam Sanchez is a 70 year old male current smoker seen for a followup visit today at the department of radiation oncology for a history of stage IV follicular lymphoma, grade I for which he received palliative RT 20 Gy in 5 fractions to a right pelvic mass completed 03/20/20. 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 As these processes have been synchronously, it is difficult to discern whether they are separate primaries or metastatic foci from a singular primary. He is seen today for consideration of RT in the management of this new lung cancer diagnosis. Diagnosis/Treatment History Oncologic History Follicular lymphoma stage IV: 2013 presented with pelvic mass, biopsy showed grade I FL. Started on BR which induced CR. Had restaging PET-CT on 10/25/19 which showed stage IV disease. He has notable right pelvic bone and soft tissue involvement on this study remainder of disease is ari in distribution. 11/29/19 right iliac was biopsied which showed recurrent FL grade 1. BM biopsy on 01/10/20 was negative. He received 8 cycles of rituximab. He also received 20 Gy in 5 fractions to the ri ght hemipelvis completed 03/20/20. Currently off therapy. Lung cancer: Noted to have growing RLL pulmonary nodule on serial CT scans dating back to 09/21/19 study. Lesion was avid on 10/25/19 PET-CT, also notably avidity in the distal CARINA lobar bronchus. On 03/21/20 scan RLL lesion had grown to 1.6 cm, additional nodule in the LLL ~1 cm. He underwent EBUS with Dr. Bundy who noted endobronchial tumor in the left upper lobar bronchi, this site and the RLL nodule were biopsied and both returned SCC, PDL1 and molecular characterization were similar. He was referred for RT. PFTs 01/29/20 COPD FVC 2.49 (54%P) FEV1 1.30 (38%P) FEV1/FVC 56%P DLCO 59%P Interval History Adam reports that he has an ongoing positive response in his right hip pain, but some xkeo-qt-florjpgn pain remains, which he is coping with effectively. He continues to smoke 5 cigarettes per day, he is ambivalent about quitting. He has no hemoptysis, rather coughs up vuong sputum. WARREN is stable. Appetite and weight are good/stable respectively. Current Therapy Pending Stage Either [id number] stage IB SCC or [id number] stage DON SCC of the CARINA Cannot be determined with current data Social History: Current smoker 50+ pack year Does not drink (formerly did drink heavily) [place] with Agent [place] exposure Allergies / Meds Allergies: Coded Allergies: methotrexate (Verified Adverse Reaction, Mild, VOMITING, 04/04/20) Home Meds Reported Medications Prednisone (Prednisone) 10 Mg Tablet 04/02/20 Budesonide/Formoterol (Symbicort 160-4.5 Mcg Inhaler) 6 Gm Hfa.aer.ad, 2 PUFF INH BID for 30 Days, #1 INHALER 12/26/19 Rosuvastatin Calcium (Rosuvastatin Calcium) 40 Mg Tablet, 40 MG PO DAILY, TAB 08/15/19 Metoprolol Succinate (Toprol Xl) 50 Mg Tab.er.24h, 25 MG PO DAILY, TAB 08/15/19 Hydrocodone/Acetaminophen (Hydrocodone-Acetamin 10-325 mg) 1 Each Tablet, 1 TAB PO QID, TAB 08/15/19 Pregabalin (Lyrica) 100 Mg Capsule, 100 MG PO TID, CAP 08/15/19 Albuterol Sulfate (Proair Hfa) 8.5 Gm Hfa.aer.ad, 2 PUFF INH Q4-6HP PRN for SHORTNESS OF BREATH, INHALER 08/15/19 Tiotropium [place]rett Monohydrate (Spiriva) 18 Mcg Cap.w.dev, 1 INHALATION INH DAILY, INHALER 08/15/19 Fluticasone Propionate (Fluticasone Propionate) 15.8 Ml [place].susp, 50 MCG NA DAILY, CONTAINER 08/15/19 Bupropion HCl (Bupropion Xl) 150 Mg Tab.er.24h, 150 MG PO BID, TAB 08/15/19 Lisinopril (Lisinopril) 5 Mg Tablet, 2.5 MG PO DAILY, TAB 08/15/19 Leflunomide (Leflunomide) 20 Mg Tablet, 20 MG PO DAILY, TAB 08/15/19 Prednisone (Prednisone) 5 Mg Tab.ds.pk, 5 MG PO DAILY 08/15/19 Pantoprazole Sodium (Pantoprazole Sodium) 40 Mg Tablet.dr, 40 MG PO BID, TAB 08/15/19 Theophylline Anhydrous (Theophylline) 400 Mg Tab.er.24h, 300 MG PO BID, TABCR 08/15/19 Discontinued Reported Medications Ciprofloxacin HCl (Cipro) 500 Mg Tablet, 500 MG PO BID for 7 Days, #14 TAB 04/19/20 Review of Systems Review of Systems Constitutional: Reports: Fatigue; Denies: Chills, Fever, Weight Loss Eyes: Denies: Pain HEENT: Denies: Head Aches Skin: Denies: Rash Pulmonary: Reports: Dyspnea, Cough; Denies: Pleuritic Chest Pain Cardiovascular: Denies: Chest Pain, Palpitations Gastrointestinal: Denies: Abdominal Pain Hematologic: Reports: Bruising, Purpura; Denies: Bleeding Excessively Musculoskeletal: Reports: Back pain, Leg pain; Denies: Neck pain Neurological: Denies: Weakness, Numbness Psych: Reports: Mood Normal Physical Examination Vital Signs Wt 216 lbs T 97.4 P 95 RR 20 BP 151/97 O2 95% Pain 0 Fatigue 1 General Exam: Positive: Alert, Cooperative, No Acute Distress Eye Exam: Positive: PERRLA, EOMI ENT EXAM: Positive: Atraumatic Neck Exam: Positive: Supple; Negative: Lymphadenopathy Chest Exam: Positive: Clear to auscultation, Wheezing Heart Exam: Positive: Rate Normal, Regular Rhythm Abdomen Exam: Positive: Soft; Negative: Tenderness Extremity Exam: Negative: Edema Skin Exam: Positive: Nl turgor and temperature, Other skin issue (Bruising and purpura BL forearms) Neuro Exam: Positive: Normal Gait, Normal Speech, Cranial Nerves 3-12 NL Psych Exam: Positive: Mental status NL Diagnostic and Laboratory Diagnostic Review Radiologic images, relevant labs and pathology reports were personally reviewed and discussed with Mr. Sanchez. Assessment and Plan Impression Assessment Mr. Sanchez is a 70 year old male current smoker seen for a followup visit today at the department of radiation oncology for a history of stage IV follicular lymphoma, grade I for which he received palliative RT 20 Gy in 5 fractions to a right pelvic mass completed 03/20/20. 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 As these processes have been synchronously, it is difficult to discern whether they are separate primaries or metastatic foci from a singular primary. He is seen today for consideration of RT in the management of this new lung cancer diagnosis. On a comprehensive review of his imaging since 2019 he has synchronous evolving disease in multiple foci in the BL lungs without evidence of ari involvement or distant metastasis. There are currently 4 lesions in the lung of concern: Biopsy proven CARINA endobronchial disease which is apparent on his CT from 03/21/20, which correlates with Dr. Bundy's bronchoscopic findings and appears associated with a focus of avidity on the 10/25/19 PET-CT; the biopsy proven RLL nodule ~ 1.6 cm; an inferior LLL nodule ~1 cm, which has grown since the 09/29/19 scan; as well as a small superior LLL nodule which is new on the 03/21/20 CT compared to prior studies. Optimistically, these are all independent processes (multiple synchronous primary lesions), versus the possibility that they are metastatic foci (M1a disease), I would argue that the absence of radiographically apparent mediastinal ari disease weighs against the latter, however there is no easy way to prove this point, and additional diagnostics (biopsies etc) would not change my recommendation to treat. The spatial separation of the lesions and the ultracentral nature of the CARINA endobronchial lesion in particular render conventional SBRT infeasible (I cannot and will not treat 4 isocenters synchronously), rather I think he would be best served by one of two approaches 1) Conventionally fractionated RT 60 Gy in 30 fractions with concurrent weekly chemotherapy (which would be standard for locally advanced unresectable NSCLC) or 2) Hypofractionated RT 50 Gy in 10 fractions without chemotherapy using a monoisocentric planning technique. The latter may be associated with increased risk of pneumonitis compared to the former. The point of decision will hinge on whether he is appropriate for chemotherapy as I think that 60 Gy without chemotherapy would result in a lower control probability than the hypofractionated RT. I will discuss with Dr. Downing and gauge his willingness to offer chemotherapy. Given his comorbid FL, and CKD, I would understand if chemotherapy is not deemed feasible. With either radiation regimen VMAT will be necessary due to the BL processes being treated concurrently. A 4D planning approach will be used to minimize PTV margins and normal lung dose. We will proceed with simulation in the next week and have a finalized treatment plan by then. Adam agreed to the above. Performance Status ECOG 1 Plan Chemoradiation 60 Gy in 30 fractions versus hypofractionated RT 50 Gy in 10 fractions with VMAT and 4DCT planning Will ask Dr. Downing to weigh in regarding chemotherapy Simulation in the coming week Prior PFTs adequate to proceed Mr. Sanchez was encouraged to call with questions or concerns in the interim period. Billing Statement Total time of [51] minutes was spent preparing for the visit [4], obtaining HPI [8], examining the patient [2], reviewing diagnostic tests [8], discussing management options [15], coordinating care [3], and writing this note [11]. ROX GENTILE MD May 17, 2020 11:02
== END ==
LOC: M ONCR 08:54
PROVIDERS: ATTEND General Practice
DX: C34.31 Malignant neoplasm of lower lobe, right bronchus or lung (principal); C34.32 Malignant neoplasm of lower lobe, left bronchus or lung

== ENCOUNTER 2020-05-24 12:57 | Outpatient (RCR) | payer OTHER ==
[~2020-05-24 12:57] MED LIST changes: -PRED10TA2; +PRED10TA2 PO
== END 2020-06-08 ==
LOC: M ONCR 12:57
PROVIDERS: ATTEND General Practice
DX: C34.12 Malignant neoplasm of upper lobe, left bronchus or lung (principal)

== ENCOUNTER 2020-06-27 14:30 | Outpatient (RCR) | payer OTHER ==
[~2020-06-27 14:30] MED LIST changes: +COVI30VI IM; -FLUT15.820; +FLUT15.820 NARES; +ONDA-83 PO; +PRED10PA PO
[2020-06-28] MEDS ORDERED: ARTIDRO OU ×2 (17:50→17:58)
[2020-06-28] MEDS ORDERED: LISI2.5T2 PO (17:50)
[2020-06-28] MEDS ORDERED: BUPR100T10 PO (17:50)
[2020-06-28] MEDS ORDERED: METO1TAB32 PO (17:50)
[2020-06-28] MEDS ORDERED: SPIR12.9 INH (17:50)
[2020-06-28] MEDS ORDERED: THEO300T33 PO (17:50)
[2020-06-28] MEDS ORDERED: REFR0.5D8 OU (17:58)
[2020-06-28] MEDS ORDERED: VITMTA PO (17:58)
[2020-06-28] MEDS ORDERED: KETO2CR TOP (17:58)
[2020-06-28] MEDS ORDERED: COLA100C5 PO (17:58)
[2020-06-28] MEDS ORDERED: NICO2LOZ29 MT (17:58)
--- NOTE | 2020-07-02 14:34 | RADENCPD ---
Date/Time of Encounter Date of Encounter: July 02, 2020 Time of Encounter: 14:33 Encounter Holding treatment today, patient remains at [facility] per report. Will attempt to contact him directly tomorrow. ROX GENTILE MD July 02, 2020 14:34
== END 2020-07-09 ==
LOC: M ONCR 14:30
PROVIDERS: ATTEND General Practice
DX: C34.12 Malignant neoplasm of upper lobe, left bronchus or lung (principal)

== ENCOUNTER 2020-06-28 14:00 | Inpatient (IN) | payer OTHER ==
[~2020-06-28] VITALS: Ht 180.3 cm; Wt 97.5 kg
[2020-06-28] MEDS ORDERED: IPRATROPIUM 0.5MG/ALBUTEROL 2.5MG INH SOL UD 3ML (DUONEB) NEB ONE (14:35)
[2020-06-28 14:59] LABS: HEMATOCRIT 32.6 % (42.0-52.0); HEMOGLOBIN 10.2 g/dl (13.5-17.5); MEAN CORPUSCULAR HEMOGLOBIN 27.3 pg (27.0-33.0); MEAN CORPUSCULAR HGB CONC 31.3 g/dl (32.0-36.5); MEAN CORPUSCULAR VOLUME 87.4 fl (80.0-96.0); PLATELET COUNT, AUTOMATED 151 10^3/uL (150-450); RED BLOOD COUNT 3.73 10^6/uL (4.30-6.10)
--- NOTE | 2020-06-28 15:11 | REP ---
INDICATION: DYSPNEA/COUGH. COMPARISON: 04/04/2020. TECHNIQUE: Single portable AP view of the chest was performed. FINDINGS: There is no acute infiltrate or pulmonary edema. There are stable bibasilar fibro atelectatic changes. The heart is not significantly enlarged. The mediastinal silhouette is unremarkable. The visualized osseous structures are intact.There is right central venous catheter again seen with the tip in the superior vena cava. Two metallic clips are again seen medially in the right lung base. IMPRESSION: No acute pulmonary disease. <Electronically signed by Sarabjit Kim > 06/28/20 [id number]
[2020-06-28 15:30] LABS: ALBUMIN 2.5 GM/DL (3.2-5.2); BILIRUBIN,DIRECT 0.2 MG/DL (0.0-0.2); BILIRUBIN,TOTAL 0.4 MG/DL (0.2-1.0); CALCIUM LEVEL 8.1 MG/DL (8.8-10.2); CK-MB VALUE MASS 2.8 NG/ML (<3.6); CREATININE FOR GFR 4.07 MG/DL (0.70-1.30); GLOMERULAR FILTRATION RATE 15.5 (>42); MB/CK RELATIVE INDEX 2.52 (< OR =4); TOTAL PROTEIN 5.4 GM/DL (6.4-8.2); TROPONIN I 0.16 NG/ML (< 0.10)
[2020-06-28] MEDS ORDERED: NS 1,000 ML IV ONE (15:50)
[2020-06-28 16:19] LABS: ATYPICAL LYMPH 1 % (0-5); LYMPHOCYTES 6 % (16-44); METAMYELOCYTES 1 % (0-0); MONOCYTES 18 % (0-5); NEUTROPHILS 55 % (28-66)
[2020-06-28 16:20] LABS: ANISOCYTOSIS 1+; HYPOCHROMASIA 1+
[2020-06-28 16:22] LABS: POLYCHROMASIA 1+
[2020-06-28 16:30] LABS: PLATELET ESTIMATE DECREASED (NORMAL)
[2020-06-28] MEDS ORDERED: ACETAMINOPHEN TAB 650MG DOSE (2X325MG) PO PRN (16:35)
[2020-06-28] MEDS ORDERED: IPRATROPIUM 0.5MG/ALBUTEROL 2.5MG INH SOL UD 3ML (DUONEB) NEB PRN (16:35)
[2020-06-28] MEDS ORDERED: MOM 30ML SUSPENSION UDC PO PRN (16:35)
[2020-06-28] MEDS ORDERED: MAALOX 30 ML SUSP *UDC PO PRN (16:35)
--- NOTE | 2020-06-28 16:51 | HPEPDOC ---
[facility] Medical History & Physical Date of Admission June 28, 2020 Date of Service: June 28, 2020 History and Physical CHIEF COMPLAINT: Diarrhea HISTORY OF PRESENT ILLNESS: This is a 70-year-old male history of lymphoma treated 6 years ago and active primary lung cancer who is currently undergoing chemotherapy with Dr Toussaint (last was 8 days ago last thu), and radiation with Dr Mast (last was yesterday). He presents to the hospital because of a two-week history of diarrhea at home and very poor appetite decreased intake of both solids and liquids. He tells me that he believes his chemotherapy therapy dose may be too high and causing his diarrhea he has been going more than 10 times daily and has liquid brown stools. On exam patient was wheezing he tells me that over the past few days he's had increased wheezing from his baseline but no sputum production no fevers no chills. In the emergency department she was started on normal saline bolus. His blood pressure was a little on the low side and responded to IV fluid resuscitation. He was noted that his troponin was slightly elevated to 0.16 he tells me he denies any chest pain at any point he denies chest palpitations. He denies a history of cardiac problems tells me his never had a heart attack before or since placed. PAST MEDICAL/SURGICAL HISTORY: Follicular cell lymphoma, Squamous cell lung cancer currently undergoing chemotherapy and radiation COPD Hypertension Arthritis SOCIAL HISTORY: Denies alcohol use Endorses that he is an active smoker smokes about one quarter of a pack per day and has been smoking for over 50 years Denies illicit drug use FAMILY HISTORY: Reviewed and none contributory to this admission ALLERGIES: Please see below. REVIEW OF SYSTEMS: 10 point review of systems complete all negative otherwise stated in HPI HOME MEDICATIONS: Please see below. PHYSICAL EXAMINATION: Constitutional: Awake and alert, in no apparent distress, elderly appearing male appears weak ENT: Sclera are clear and not icteric. Mucosa is dry Respiratory: Lungs diminished breath sounds with scattered end expiratory wheezing. Able to speak to me in full sentences. Cardiovascular: Regular rhythm and rate is fast 105 and monitor. No obvious murmurs. Gastrointestinal: Abdomen is soft, non distended, non tender, BS present. Musculoskeletal: No lower extremity edema. 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 Neurologic: No focal neurological deficit. Mental Status: A&O x3, normal affect Skin: No visible rashes LABORATORY DATA: See below. IMAGING: See chart MICROBIOLOGY: Please see below. ASSESSMENT/PLAN 70-year-old male history of lymphoma treated and active lung cancer currently receiving chemotherapy and radiation who presents with diarrhea for 2 weeks found to have acute kidney injury with severe dehydration. Admitted for medical workup and management. # DEMI on CKDIII: Cr 4 on admission. Baseline ~1.2 . Prerenal 2/2 severe dehydration from diarrhea. Fu FeNa. IVFs with NS. Trend BMP. Avoid nephrotoxins. Fu renal US. Bladder scan for PRV. Patient refused carr for critical monitoring of urine output but promised he would urinate only in the bedside urinal jug so we can keep track of his urine output. He hasn't urinated since this morning. Consulted nephrology Dr Garcia. # Diarrhea: from chemotherapy. supportive management. IVFs. # Severe dehydration: from 2 weeks of diarrhea. Fluid resuscitation. # Troponemia: At this time patient is chest pain-free, EKG is sinus tachy w ithout STEMI. Initial troponin 0.16 which at this time I attributed to demand ischemia likely from severe dehydration. However we will trend troponin and EKGs q6h to rule out ACS. I discussed this with the patient and should troponin continue to rise and there is concern for an STEMI patient agreeable to be transferred for possible stenting. # Acute on chronic COPD exacerbation: wheezing on exam. IV solumedrol. Duonebs scheduled and as needed. Symbicort scheduled. Incentive spirometry. # Lung cancer with neutropenia: Follows with Dr. Toussaint for his chemotherapy and Dr Mast for his radiation. # Hypertension: Hold antihypertensive medications. Patient currently normotensive 110/70. Likely from severe dehydration. Monitor and titrate it antihypertensives as necessary. # DVT prophylaxis: Heparin A Yousef Hospitalist Vital Signs Vital Signs Date Time Temp Pulse Resp B/P (MAP) Pulse Ox O2 Delivery O2 Flow Rate FiO2 06/28/20 16:25 Nasal Cannula 2.0 06/28/20 16:15 100 110/71 (84) 94 06/28/20 14:33 98.8 18 Laboratory Data Labs 24H Laboratory Tests 2 06/28/20 14:43: Neutrophils (%) (Auto) , Nucleated Red Blood Cells % (auto) 1.7H, Neutrophils 55, Band Neutrophils 19H, Lymphocytes (Manual) 6L, Monocytes (Manual) 18H, Metamyelocytes 1H, Atypical Lymphocytes 1, Polychromasia 1+, Hypochromasia 1+, Basophilic Stippling 1+, Anisocytosis 1+, Platelet Estimate DECREASED, Anion Gap 12, Glomerular Filtration Rate 15.5L, Calcium Level 8.1L, Total Bilirubin 0.4, Direct Bilirubin 0.2, Aspartate Amino Transf (AST/SGOT) 32, Alanine Aminotransferase (ALT/SGPT) 23, Alkaline Phosphatase 89, Total Creatine Kinase 111, Creatine Kinase MB 2.8, Creatine Kinase MB Relative Index 2.52, Troponin I 0.16H, Total Protein 5.4L, Albumin 2.5L, Albumin/Globulin Ratio 0.9 CBC/BMP Laboratory Tests 06/28/20 14:43 Microbiology Microbiology 06/28/20 Respiratory Virus Panel (PCR) ([facility]), Received Pending Home Medications Scheduled Budesonide/Formoterol (Symbicort 160-4.5 Mcg Inhaler) 6 Gm Hfa.aer.ad, 2 PUFF INH BID Bupropion HCl (Bupropion Xl) 150 Mg Tab.er.24h, 150 MG PO BID Fluticasone Propionate (Fluticasone Propionate) 15.8 Ml [place].susp, 50 MCG NA DAILY Hydrocodone/Acetaminophen (Hydrocodone-Acetamin 10-325 mg) 1 Each Tablet, 1 TAB PO QID Leflunomide (Leflunomide) 20 Mg Tablet, 20 MG PO DAILY Lisinopril (Lisinopril) 5 Mg Tablet, 2.5 MG PO DAILY Metoprolol Succinate (Toprol Xl) 50 Mg Tab.er.24h, 25 MG PO DAILY Pantoprazole Sodium (Pantoprazole Sodium) 40 Mg Tablet.dr, 40 MG PO BID Prednisone (Prednisone) 10 Mg Tablet, 1 TAB PO DAILY Prednisone (Prednisone) 10 Mg Tab.ds.pk, 1 TAB PO DAILY Pregabalin (Lyrica) 100 Mg Capsule, 100 MG PO TID Rosuvastatin Calcium (Rosuvastatin Calcium) 40 Mg Tablet, 40 MG PO DAILY Theophylline Anhydrous (Theophylline) 400 Mg Tab.er.24h, 300 MG PO BID Tiotropium [place] Monohydrate (Spiriva) 18 Mcg Cap.w.dev, 1 INHALATION INH DAILY Scheduled PRN Albuterol Sulfate (Proair Hfa) 8.5 Gm Hfa.aer.ad, 2 PUFF INH Q4-6HP PRN for SHOR TNESS OF BREATH Ondansetron HCl (Ondansetron HCl) 4 Mg Tablet, 1 TAB PO TID PRN for nausea/vomiting Miscellaneous Medications Covid-19 Vacc, Mrna([place] [employer])/Pf ([employer] Covid19 Vacc (Unapprov)) 30 Mcg/0.3 Ml Vial, 30 MCG IM Allergies Coded Allergies: methotrexate (Verified Adverse Reaction, Mild, VOMITING, 04/04/20) A-FIB/CHADSVASC A-FIB History Current/History of A-Fib/PAF?: No LAVELLE WARREN MD June 28, 2020 16:51
--- NOTE | 2020-06-28 17:20 | REP ---
INDICATION: DEMI. COMPARISON: None. FINDINGS: Multiple ultrasonographic images of the right kidney show the right kidney to measure 8.6 x 4.8 x 5.3 cm. The renal cortical echotexture is unremarkable. There are no masses. There is good corticomedullary differentiation. There is no hydronephrosis. There are no perinephric fluid collections. The left kidney was not evaluated by the technologist due to bowel gas. IMPRESSION: 1. The exam is limited as described above. 2. CT is recommended for further evaluation of the kidneys 3. The technologist indicated on the worksheet that the gallbladder might be distended although this examination was not performed to evaluate the gallbladder it was not evaluated <Electronically signed by Lionel Gabriel > 06/28/20 [id number]
[2020-06-28] MEDS ORDERED: SPIR12.9 INH (17:50)
[2020-06-28] MEDS ORDERED: ARTIDRO OU ×2 (17:50→17:58)
[2020-06-28] MEDS ORDERED: METO1TAB32 PO (17:50)
[2020-06-28] MEDS ORDERED: THEO300T33 PO (17:50)
[2020-06-28] MEDS ORDERED: BUPR100T10 PO (17:50)
[2020-06-28] MEDS ORDERED: LISI2.5T2 PO (17:50)
[2020-06-28] MEDS ORDERED: VITMTA PO (17:58)
[2020-06-28] MEDS ORDERED: NICO2LOZ29 MT (17:58)
[2020-06-28] MEDS ORDERED: KETO2CR TOP (17:58)
[2020-06-28] MEDS ORDERED: REFR0.5D8 OU (17:58)
[2020-06-28] MEDS ORDERED: COLA100C5 PO (17:58)
[2020-06-28] MEDS: methylPREDNISolone 125MG 2ML VIAL IV SCH (18:00)
[2020-06-28 18:35] LABS: CALCIUM LEVEL 8.1 MG/DL (8.8-10.2); CREATININE FOR GFR 3.76 MG/DL (0.70-1.30); POTASSIUM SERUM 3.7 MEQ/L (3.5-5.1)
[2020-06-28 19:55] VITALS: BP 107/60
[2020-06-28] MEDS: IPRATROPIUM 0.5MG/ALBUTEROL 2.5MG INH SOL UD 3ML (DUONEB) NEB SCH (20:00)
[2020-06-28] MEDS: SYMBICORT 160/4.5MCG INHALER 6GM INH SCH (20:00)
[2020-06-28] MEDS: NS 1,000 ML IV SCH ×2 (20:28→23:44)
[2020-06-28] MEDS: DOCUSATE SODIUM 100MG CAPSULE PO SCH (21:00)
[2020-06-28] MEDS: HEPARIN SOD (PORCINE) 5000UNITS/ML 1ML VIAL/SYRINGE SC SCH (22:00)
[2020-06-28] MEDS: MAALOX 30 ML SUSP *UDC PO PRN (22:03)
[2020-06-29] MEDS: HYDROmorphone 2 MG TAB PO PRN ×2 (00:24→12:33)
[2020-06-29] MEDS: methylPREDNISolone 125MG 2ML VIAL IV SCH ×2 (02:12→09:25)
[2020-06-29 02:30] LABS: OSMOLALITY URINE 291 MOSM/KG (50-1400)
[2020-06-29 02:31] LABS: AMORPHOUS SEDIMENT SMALL (NEGATIVE); APPEARANCE, URINE HAZY (CLEAR); BACTERIA, URINE AUTO 1+ (NEGATIVE); BILIRUBIN, URINE AUTO NEGATIVE (NEGATIVE); BLOOD, URINE BLOOD 1+ (NEGATIVE); COLOR, URINE YELLOW (YELLOW); GLUCOSE, URINE (UA) AUTO NEGATIVE (NEGATIVE); KETONE, URINE AUTO NEGATIVE (NEGATIVE); LEUKOCYTE ESTERASE, URINE AUTO 3+ (NEGATIVE); MUCUS, URINE SMALL (NEGATIVE); NITRITE, URINE AUTO NEGATIVE (NEGATIVE); PROTEIN, URINE AUTO 1+ mg/dL (NEGATIVE); RBC, URINE AUTO 12 /HPF (0-3); SPECIFIC GRAVITY URINE AUTO 1.013 (1.002-1.035); SQUAMOUS EPITHELIAL CELL UR AU 0 /HPF (0-6); UROBILINOGEN, URINE AUTO 0.2 mg/dL (0.0-2.0); WBC, URINE AUTO 34 /HPF (0-3)
[2020-06-29 02:50] LABS: CHLORIDE,RANDOM URINE < 10 MEQ/L; SODIUM,RANDOM URINE 10 MEQ/L
[2020-06-29 03:15] VITALS: BP 90/40
--- NOTE | 2020-06-29 04:33 | IPNPDOC ---
Text Note Date of Service The patient was seen on 06/29/20. NOTE #Possible Type 2 NSTEMI 2/2 tachycardia and reduced clearance of troponins due to DEMI The pt doesn't have chest pain EKG rate of [address] elevation CAROLE Score for NSTEMI is 2 points = LR of 0.31 of ACS based on JAMAs article Does this patient with Chest pain have ACS? Plan: give ASA / continue to trend trops / f/u Echo, lipids and A1C / day time team can call Cardio to discuss if pt needs out pt stress test at a later date if the Trop plateaus VS,Fishbone, I+O VS, Fishbone, I+O Laboratory Tests 06/28/20 14:43 06/28/20 18:02 Vital Signs Date Time Temp Pulse Resp B/P (MAP) Pulse Ox O2 Delivery O2 Flow Rate FiO2 06/29/20 01:30 17 06/28/20 19:55 96.3 66 107/60 (76) 92 Nasal Cannula 2.0 I&O- Last 24 Hours up to 6 AM 06/29/20 06:00 Intake Total 1360 ml Output Total 500 ml Balance 860 ml MAYITO FRASER MD June 29, 2020 04:33
[2020-06-29 05:00] VITALS: BP 124/72
[2020-06-29] MEDS ORDERED: ASPIRIN 81 MG CHEW TABLET PEG SCH (05:00)
[2020-06-29] MEDS: HEPARIN SOD (PORCINE) 5000UNITS/ML 1ML VIAL/SYRINGE SC SCH (05:20)
[2020-06-29] MEDS: NS 1,000 ML IV SCH (05:36)
[2020-06-29 06:00] VITALS: BP 115/71
[2020-06-29 06:50] LABS: HEMATOCRIT 31.4 % (42.0-52.0); HEMOGLOBIN 9.7 g/dl (13.5-17.5); MEAN CORPUSCULAR HEMOGLOBIN 27.5 pg (27.0-33.0); MEAN CORPUSCULAR HGB CONC 30.9 g/dl (32.0-36.5); PLATELET COUNT, AUTOMATED 149 10^3/uL (150-450); RED BLOOD COUNT 3.53 10^6/uL (4.30-6.10); WHITE BLOOD COUNT 2.2 10^3/uL (4.0-10.0)
[2020-06-29 07:16] LABS: ALBUMIN 2.3 GM/DL (3.2-5.2); BILIRUBIN,TOTAL 0.3 MG/DL (0.2-1.0); CREATININE FOR GFR 3.07 MG/DL (0.70-1.30); GLOMERULAR FILTRATION RATE 21.5 (>42); MAGNESIUM LEVEL 1.6 MG/DL (1.8-2.4); POTASSIUM SERUM 3.8 MEQ/L (3.5-5.1)
[2020-06-29] MEDS: IPRATROPIUM 0.5MG/ALBUTEROL 2.5MG INH SOL UD 3ML (DUONEB) NEB SCH (07:44)
[2020-06-29] MEDS: SYMBICORT 160/4.5MCG INHALER 6GM INH SCH (07:44)
[2020-06-29 08:01] LABS: CHOLESTEROL RISK RATIO 4.379 (<5); TROPONIN I 1.89 NG/ML (< 0.10)
[2020-06-29] MEDS: DOCUSATE SODIUM 100MG CAPSULE PO SCH (09:00)
[2020-06-29] MEDS ORDERED: predniSONE 20 MG TAB PO SCH (09:00)
--- NOTE | 2020-06-29 09:01 | RADENCPD ---
Date/Time of Encounter Date of Encounter: June 29, 2020 Time of Encounter: 08:54 Encounter Saw Adam at bedside today. Reports he is feeling a little better this morning, got some rest, notes he passed a small amount of urine this AM. I discussed resuming radiation today so as not to compromise his oncologic outcome. He is agreeable to this. I also note he has a pending nephrology consultation, and some troponin elevation in the absence of obvious ACS symptomatology. If there is a more urgent intervention deemed necessary by the primary team today, in light of his kidney injury or cardiovascular status, then we could easily hold RT and resume Thursday. Plan: Resume RT today Please alert us at [phone] if team would like RT held ROX GENTILE MD June 29, 2020 09:01
[2020-06-29] MEDS: MAALOX 30 ML SUSP *UDC PO PRN (09:25)
[2020-06-29] MEDS ORDERED: HEPARIN DRIP 25,000 UNITS in IV 1 EA IV SCH (09:35)
[2020-06-29] MEDS ORDERED: HEPARIN SOD (PORCINE) 5000UNITS/ML 1ML VIAL/SYRINGE IV PRN (09:35)
[2020-06-29] MEDS ORDERED: ONDANSETRON 4MG/2ML VIAL IV PRN (09:45)
[2020-06-29] MEDS ORDERED: CLOPIDOGREL 300 MG TAB (PLAVIX) PO STA (09:53)
[2020-06-29 10:00] VITALS: BP 109/66
[2020-06-29 10:35] LABS: HEMATOCRIT 32.8 % (42.0-52.0); HEMOGLOBIN 10.2 g/dl (13.5-17.5); MEAN CORPUSCULAR HGB CONC 31.1 g/dl (32.0-36.5); MEAN CORPUSCULAR VOLUME 90.1 fl (80.0-96.0); PLATELET COUNT, AUTOMATED 163 10^3/uL (150-450); RED BLOOD COUNT 3.64 10^6/uL (4.30-6.10); WHITE BLOOD COUNT 2.1 10^3/uL (4.0-10.0)
[2020-06-29] MEDS ORDERED: FUROSEMIDE 40MG/4ML VIAL (J1940) IV ONE (10:45)
[2020-06-29] MEDS ORDERED: MAG SULF 1GM/100ML (MAG RUN) 1 GM in IV 1 EA IV ONE (10:45)
--- NOTE | 2020-06-29 11:47 | DS.PDOC ---
Discharge Summary General Date of Admission June 28, 2020 at 16:38 Date of Discharge 06/29/20 Discharge Summary PROCEDURES PERFORMED DURING STAY: [None]. ADMITTING/DISCHARGE DIAGNOSES: DEMI on CKDIII Dehydration Diarrhea Acute on chronic COPD exacerbation Troponemia DISCHARGE DIAGNOSES: NSTEMI DEMI on CKDIII Dehydration Diarrhea Acute on chronic COPD exacerbation COMPLICATIONS/CHIEF COMPLAINT: Acute Renal Failure. HISTORY OF PRESENT ILLNESS: From H&P: This is a 70-year-old male history of lymphoma treated 6 years ago and active primary lung cancer who is currently undergoing chemotherapy with Dr Toussaint (last was 8 days ago last thu), and radiation with Dr Mast (last was yesterday). He presents to the hospital because of a two-week history of diarrhea at home and very poor appetite decrea sed intake of both solids and liquids. He tells me that he believes his chemotherapy therapy dose may be too high and causing his diarrhea he has been going more than 10 times daily and has liquid brown stools. On exam patient was wheezing he tells me that over the past few days he's had increased wheezing from his baseline but no sputum production no fevers no chills. In the emergency department she was started on normal saline bolus. His blood pressure was a little on the low side and responded to IV fluid resuscitation. He was noted that his troponin was slightly elevated to 0.16 he tells me he denies any chest pain at any point he denies chest palpitations. He denies a history of cardiac problems tells me his never had a heart attack before or stent placed. HOSPITAL COURSE: 70-year-old male history of lymphoma treated and active lung cancer currently receiving chemotherapy and radiation who presents with diarrhea for 2 weeks found to have acute kidney injury with severe dehydration. Patient received IV fluids with some improvement of his renal function. Nephrology was consulted. His diarrhea had improved. He doesn't appear as dehydrated now. patient also had acute on chronic COPD exacerbation which improved by the second day of hospitalization wheezing had improved and his shortness of breath felt better. Patient was treated with scheduled and as needed inhalers and steroids. Unfortunately his troponins continued to rise overnight patient has an STEMI and was started on a heparin drip. Assess the case with JUNG barfield and Dr. Sullivan was kind enough to accept the patient for possible percutaneous intervention and stenting if needed. I examined the patient before leaving at this time he denied chest pain but he had some nausea. DISCHARGE MEDICATIONS: Please see below. ALLERGIES: Please see below. PHYSICAL EXAMINATION ON DISCHARGE: VITAL SIGNS: Please see below. Constitutional: Awake and alert, in no apparent distress, appears weak ENT: Sclera are clear and not icteric. Mucosa is dry Respiratory: Lungs diminished breath sounds with some wheezing but improved from yesterday. Able to speak to me in full sentences. Cardiovascular: Regular rate and rhythm. No obvious murmurs. Gastrointestinal: Abdomen is soft, non distended, non tender, BS present. Musculoskeletal: No lower extremity edema. 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 Neurologic: No focal neurological deficit. Mental Status: A&O x3, normal affect Skin: No visible rashes LABORATORY DATA: Please see below. IMAGING: Renal US IMPRESSION: 1. The exam is limited as described above. 2. CT is recommended for further evaluation of the kidneys 3. The technologist indicated on the worksheet that the gallbladder might be distended although this examination was not performed to evaluate the gallbladder it was not evaluated CXR IMPRESSION: No acute pulmonary disease. PROGNOSIS: fair ACTIVITY: [As tolerated]. DIET: NPO for procedure DISPOSITION: [facility] DISCHARGE CONDITION: [Stable]. TIME SPENT ON DISCHARGE: 45 minutes. Vital Signs/I&Os Vital Signs Date Time Temp Pulse Resp B/P (MAP) Pulse Ox O2 Delivery O2 Flow Rate FiO2 06/29/20 09:00 3.0 06/29/20 06:00 98.0 101 20 115/71 (86) 90 Nasal Cannula I&O- Last 24 Hours up to 6 AM 06/29/20 05:59 Intake Total 1360 ml Output Total 500 ml Balance 860 ml Laboratory Data Labs 24H Laboratory Tests 2 06/28/20 14:43: Neutrophils (%) (Auto) , Nucleated Red Blood Cells % (auto) 1.7H, Neutrophils 55, Band Neutrophils 19H, Lymphocytes (Manual) 6L, Monocytes (Manual) 18H, Metamyelocytes 1H, Atypical Lymphocytes 1, Polychromasia 1+, Hypochromasia 1+, Basophilic Stippling 1+, Anisocytosis 1+, Platelet Estimate DECREASED, Anion Gap 12, Glomerular Filtration Rate 15.5L, Calcium Level 8.1L, Total Bilirubin 0.4, Direct Bilirubin 0.2, Aspartate Amino Transf (AST/SGOT) 32, Alanine Aminotransferase (ALT/SGPT) 23, Alkaline Phosphatase 89, Total Creatine Kinase 111, Creatine Kinase MB 2.8, Creatine Kinase MB Relative Index 2.52, Troponin I 0.16H, Total Protein 5.4L, Albumin 2.5L, Albumin/Globulin Ratio 0.9 06/28/20 18:02: Anion Gap 11, Glomerular Filtration Rate 17.0L, Calcium Level 8.1L 06/28/20 19:46: Troponin I 0.49#H 06/29/20 02:04: Troponin I 1.60#*H 06/29/20 02:06: Urine Color YELLOW, Urine Appearance HAZY, Urine pH 5.0, Urine Specific [place] 1.013, Urine Protein 1+H, Urine Glucose (Auto)(UA) NEGATIVE, Urine Ketones (Auto) NEGATIVE, Urine Blood 1+H, Urine Nitrite NEGATIVE, Urine Bilirubin NEGATIVE, Urine Urobilinogen 0.2, Urine Leukocyte Esterase (Auto) 3+H, Urine WBC (Auto) 34H, Urine RBC (Auto) 12H, Urine Hyaline Casts (Auto) 6, Urine Bacteria (Auto) 1+H, Urine Squamous Epithelial Cells 0, Urine Amorphous Sediment (Auto) SMALLH, Urine Mucus (Auto) SMALL, Urine Sperm (Auto) , Urine Osmolality 291, Urine Random Creatinine 177.0, Urine Random Sodium 10, Urine Random Chloride < 10 06/29/20 06:11: Nucleated Red Blood Cells % (auto) 0.9H, Anion Gap 8, Glomerular Filtration Rate 21.5L, Estimated Mean Plasma Glucose 126H, Hemoglobin A1c 6.0, Calcium Level 8.0L, Magnesium Level 1.6L, Total Bilirubin 0.3, Aspartate Amino Transf (AST/SGOT) 71H, Alanine Aminotransferase (ALT/SGPT) 33, Alkaline Phosphatase 103, Troponin I 1.89*H, Total Protein 5.0L, Albumin 2.3L, Albumin/Globulin Ratio 0.9, Triglycerides Level 164H, Total Cholesterol 127, LDL Cholesterol 65, Non- HDL Cholesterol (LDL + VLDL) 98, Total HDL Cholesterol 29L, Cholesterol/HDL Ratio 4.379 06/29/20 10:22: Nucleated Red Blood Cells % (auto) 1.5H, Activated Partial Thromboplast Time 29.7 CBC/BMP Laboratory Tests 06/28/20 14:43 06/28/20 18:02 06/29/20 06:11 06/29/20 10:22 Microbiology Microbiology 06/28/20 Respiratory Virus Panel (PCR) ([facility]) - Final, Complete Discharge Medications Scheduled Budesonide/Formoterol (Symbicort 160-4.5 Mcg Inhaler) 6 Gm Hfa.aer.ad, 2 PUFF INH BID, (Reported) Bupropion HCl (Bupropion HCl) 100 Mg Tablet, 150 MG PO BID, (Reported) Fluticasone Propionate (Fluticasone Propionate) 15.8 Ml [place].susp, 1 SPRAY NARES DAILY, (Reported) Hydrocodone/Acetaminophen (Hydrocodone-Acetamin 10-325 mg) 1 Each Tablet, 1 TAB PO QID, (Reported) Ketoconazole (Ketoconazole) 15 Gm Cream..g., 1 DOSE TOP BID, (Reported) APPLY TO LEFT FOOT AND LEG Leflunomide (Leflunomide) 20 Mg Tablet, 20 MG PO DAILY, (Reported) Metoprolol Succinate (Metoprolol Succinate) 25 Mg Tab.er.24h, 25 MG PO QHS, (Reported) Multivitamins (Thera M Plus Tablet) 1 Each Tablet, 1 TAB PO BID, (Reported) Pantoprazole Sodium (Pantoprazole Sodium) 40 Mg Tablet.dr, 40 MG PO BID, (Reported) Pregabalin (Lyrica) 100 Mg Capsule, 100 MG PO TID, (Reported) Rosuvastatin Calcium (Rosuvastatin Calcium) 40 Mg Tablet, 40 MG PO QPM, (Reported) Theophylline Anhydrous (Theophylline Anhydrous) 300 Mg Tab.er.12h, 300 MG PO BID, (Reported) Tiotropium [place] (Spiriva Respimat) 4 Gm Mist.inhal, 2 PUFF INH DAILY, (Reported) Scheduled PRN Albuterol Sulfate (Proair Hfa) 8.5 Gm Hfa.aer.ad, 2 PUFF INH QID PRN for SHORTNESS OF BREATH, (Reported) Carboxymethylcellulose Sodium (Refresh Tears) 15 Ml Drops, 1 DROP OU QHS PRN for DRY EYES, (Reported) Docusate Sodium (Colace) 100 Mg Capsule, 200 MG PO BID PRN for CONSTIPATION, (Reported) Glycerin/Propylene Glycol (Artificial Tears Drops) 15 Ml Drops, 1 DROP OU QID PRN for DRY EYES, (Reported) Glycerin/Propylene Glycol (Artificial Tears Drops) 15 Ml Drops, 1 DROP OU QID PRN for DRY EYES, (Reported) Nicotine Polacrilex (Nicotine Lozenge) 2 Mg Lozenge, 2 MG MT PRN PRN for NICOTINE WITHDRAWAL, (Reported) Ondansetron HCl (Ondansetron HCl) 4 Mg Tablet, 4 MG PO TID PRN for NAUSEA OR VO MITING, (Reported) Allergies Coded Allergies: methotrexate (Verified Adverse Reaction, Mild, VOMITING, 04/04/20) LAVELLE WARREN MD June 29, 2020 11:47
--- NOTE | 2020-06-29 13:21 | CR ---
CONSULTATION DATE: 06/29/2020 REQUESTING PHYSICIAN: Dr. Elvin Taylor CONSULTING PHYSICIAN: Dr. Adarsh Rivas REASON FOR CONSULTATION: Management of acute renal failure and hyponatremia. CHIEF COMPLAINT: Patient presented to the hospital yesterday with persistent diarrhea, decreased oral intake, and decreased urine output. HISTORY OF PRESENT ILLNESS: Adam Sanchez is a 70-year-old male with a past medical history of non-Hodgkin's lymphoma, which was treated 6 years ago, and currently he has lung cancer. He was undergoing chemotherapy. Last dose was about a week ago. Also radiation therapy by Dr. Mast, and last radiation therapy was day before the admission. He presented to the hospital yesterday with persistent diarrhea, poor oral intake, decreased urine output, weakness, and lethargy. IN the emergency room initial labs showed that he was in acute renal failure with a creatinine of 4. He had a sodium of 129. He was admitted under the hospitalist service last night. Case was discussed with myself over the phone yesterday because of acute renal failure. Decision was made to hydrate the patient because of diarrhea and dehydration. He was started on intravenous (IV) fluid hydration. Overnight the patient was requiring straight catheterizations. He needed it twice because of urinary retention; however, with IV fluid hydration his creatinine is getting better, which has improved from 4 yesterday to 3.07 today; however, patient's troponin kept on trending up, and the highest number is 1.8 now. He has been discussed with tertiary care center in [facility], and he is going to be transferred there soon. I saw and evaluated the patient today morning at the bedside. He still reports wheezing, shortness of breath, and dizziness and reports lower abdominal pain and difficulty to urinate. MEDICAL HISTORY: 1. Non-Hodgkin's lymphoma. 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 2. He has squamous cell cancer of the lung, undergoing chemotherapy and radiation therapy. 3. Chronic obstructive pulmonary disease (COPD). 4. Hypertension. 5. Arthritis. He most likely has chronic kidney disease (CKD), stage III, at baseline. Baseline creatinine is 1.2 as per previous records. SURGICAL HISTORY: No significant past surgical history as per documentation. ALLERGIES: He is allergic to METHOTREXATE FAMILY HISTORY: No significant history of end-stage renal disease. SOCIAL HISTORY: Patient lives at home. Denies alcohol abuse. He is still an active smoker. REVIEW OF SYSTEMS: CONSTITUTIONAL: He reports feeling weak and tired. EYES: He denies any blurry vision or double vision. ENT: He denies any dysphagia or odynophagia. CARDIOVASCULAR: Denies any chest pain or palpitations. RESPIRATORY: Does report shortness of breath, cough, and wheezing. GASTROINTESTINAL: Reports nausea and diarrhea. GENITOURINARY: He reports decreased urine output and difficulty with urination. MUSCULOSKELETAL: Denies any muscles aches and pain. SKIN: Denies any rashes or ulcers. HEMATOLOGICAL/ONCOLOGICAL: He reports lung cancer but denies any active bleeding. CENTRAL NERVOUS SYSTEM: Denies any strokes or seizures. All other REVIEW OF SYSTEMS: is negative. PHYSICAL EXAMINATION: GENERAL: Patient is awake, alert, oriented times three. Mild respiratory distress. Sitting up in the bed. VITAL SIGNS: Temperature is 98 degrees Fahrenheit, blood pressure 115/71, pulse is 101, respiratory rate of 20, saturating 90% on nasal cannula at 3 liters. HEAD AND NECK: Extraocular muscles are intact. Pupils equally round and reactive to light. Mucous membranes are moist. Neck is supple. Mildly elevated jugular venous distention (JVD) was noted. CARDIOVASCULAR: S1, S2, regular rate. No edema of the bilateral lower extremities. RESPIRATORY: Diffuse rhonchi all over the lungs, starting from bases, going all the way to upper lung zones. ABDOMEN: Obese. He has a significant amount of tenderness in the suprapubic region on deep palpation. MUSCULOSKELETAL: No clubbing or cyanosis. Pulses are 2+. CENTRAL NERVOUS SYSTEM: No focal deficit. Power is 5/5 in all extremities. Bladder scan was done at the bedside, which showed 211 mL of fluid in the bladder. LABORATORY REVIEW: CBC showed a WBC of 2.1, hemoglobin 10.4, platelets are 163. Urinalysis done today showed 1+ protein, 1+ blood, 3+ leukocyte esterase. WBC were 34. Random sodium is 10, random chloride is less than 10. BMP done today morning showed sodium 132, potassium 3.8, chloride 99, bicarbonate 25, BUN 41, creatinine is 3.07; it was 4 yesterday. Glucose 102. A1c is 6. Calcium 8, magnesium is 1.6. AST 71, ALT 33, alkaline phosphatase is 103. Troponin level in the morning is 1.89, and it is trending up. Microbiology: Respiratory panel is negative. IMAGING DATA: A renal ultrasound was done yesterday, which showed a CT is recommended for further evaluation of the kidneys. Only the right kidney was evaluated, and it was 8.6 cm. Chest x-ray was done yesterday in the afternoon, which showed bibasilar fibroatelectatic changes. There was no acute infiltrate or edema. CURRENT INPATIENT MEDICATIONS: Patient's medications were all reviewed by me. He has been started on heparin drip. He was also given one dose of IV magnesium sulfate by myself. He got 1 liter normal saline bolus yesterday. He was getting fluids at 140 mL an hour. He is on Tylenol as needed, DuoNebs as needed, Mylanta as needed, aspirin 81 mg by mouth daily, Plavix 300 mg by mouth (one dose was given), Colace 100 mg by mouth twice a day. I ordered one dose of Lasix 40 mg IV. He is getting Dilaudid as needed, Solu-Medrol 60 mg IV every 8 hours, milk of magnesia as needed, and Zofran as needed. ASSESSMENT AND PLAN: 1. Acute renal failure superimposed on chronic kidney disease. Patient's creatinine was 4 on arrival. Baseline is 1.2. He was started on IV fluid hydration because of dehydration from diarrhea. Urine sodium and chloride are now. FeNA is low, which can be low either in decompensated congestive heart failure or in volume depletion; however, IV fluids did help improve his creatinine, but patient is in urinary retention as well. I have asked for Barbosa catheter placement. Given worsening troponin levels and non-ST elevation myocardial infarction (NSTEMI) and risk of fluid overload, I have stopped the IV fluids and given the patient a dose of IV Lasix. 2. Non-ST elevation myocardial infarction (DC). Patient's creatinines are trending up, and because of the risk of fluid overload as mentioned above, fluids have been stopped. IV Lasix has been done. He continues to be on Plavix and aspirin. He has been started on heparin drip. He is being transferred to [place]. 3. Hyponatremia. Patient likely had hypovolemic hyponatremia. Sodium level is improving with IV fluid hydration. 4. Hypomagnesemia. Patient is being given on dose of IV magnesium sulfate 1 gram. 5. Acute chronic obstructive pulmonary disease (COPD) exacerbation. Patient is getting nebulizations and steroids, and use of steroids would also help improve the renal function in case patient got any kidney damage from chemotherapy. 6. Carcinoma of the lung and neutropenia. Patient is getting radiation therapy with Dr. Mast and chemotherapy with Dr. Downing as outpatient. Chemotherapy will have to be held for now because of acute renal failure and non-ST elevation DC. Thank you for involving me in the care of this patient. I shall be happy to follow the patient along with you tomorrow morning if he is still here. If he gets a bed he will be transferred to [place].
--- NOTE | 2020-06-29 17:03 | ECGEPIP ---
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
--- NOTE | 2020-06-29 20:21 | ECGEPIP ---
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
== END 2020-06-29 14:27 | disposition short-term general hospital (02) | DRG 682 ==
LOC: M ED 14:00 → M ED INP 16:38 → ENRESERV 17:52 → M MSPAV 19:54
PROVIDERS: ADMIT Family Medicine; ATTEND Family Medicine
DX: N17.9 Acute kidney failure, unspecified (principal); I21.A1 Myocardial infarction type 2; J44.1 Chronic obstructive pulmonary disease with (acute) exacerbation; C34.90 Malignant neoplasm of unspecified part of unspecified bronchus or lung; E87.1 Hypo-osmolality and hyponatremia; R19.7 Diarrhea, unspecified; N18.30 Chronic kidney disease, stage 3 unspecified; E86.0 Dehydration; I12.9 Hypertensive chronic kidney disease with stage 1 through stage 4 chronic kidney disease, or unspecified chronic kidney disease; Z92.21 Personal history of antineoplastic chemotherapy; Z92.3 Personal history of irradiation; Z79.899 Other long term (current) drug therapy; Z88.8 Allergy status to other drugs, medicaments and biological substances; M19.90 Unspecified osteoarthritis, unspecified site; F17.200 Nicotine dependence, unspecified, uncomplicated